=== PATIENT | male | born 1980 | race Caucasian/White ===

== ENCOUNTER 2016-07-26 17:38 | Emergency (ER) | payer SELFPAY ==
[~2016-07-26] VITALS: Ht 170.2 cm; Wt 90.7 kg
[~2016-07-26 17:38] MED LIST: ATEN50TA PO; HYDR-3816 PO; HYDR-3874 PO; HYDR-757 PO; HYDR1TAB PO; IBUP-1780 PO; SULF-222 PO; SULF1TAB23 PO; SULF1TAB35 PO; SULF1TAB38 PO; TAMS0.4C98 PO; TRAM50TA2 PO
[2016-07-26] MEDS ORDERED: SULF1TAB35 PO (18:42)
[2016-07-26] MEDS ORDERED: HYDR-757 PO (18:42)
[2016-07-26] MEDS ORDERED: ENAL1TAB8 PO (18:42)
--- NOTE | 2016-07-26 18:42 | ED Integumentary General ---
General Stated Complaint: BITE ON LT SIDE OF FACE Source: patient Exam Limitations: no limitations History of Present Illness Time seen by provider: 18:37 Initial Comments To ER with a suspected insect bite to the left cheek for 2 days. He is at some drainage from this. Did not see anything bite him. Timing/Duration: yesterday, getting worse Severity: moderate Location: face Associated Symptoms: denies symptoms Allergies and Home Medications Allergies Coded Allergies: No Known Drug Allergies (Unverified , 02/10/12) Home Medications No Active Prescriptions or Reported Meds Constitutional: see HPI EENTM: see HPI Respiratory: no symptoms reported Cardiovascular: no symptoms reported Genitourinary: no symptoms reported Musculoskeletal: no symptoms reported Skin: no symptoms reported Psychiatric/Neurological: No Symptoms Reported Endocrine: No Symptoms Reported Past Vmvpdra-Nlvtgs-Gkoony Hx Patient Social History Drug of Choice: METH Recent Foreign Travel: No Contact w/Someone Who Travel: No Recent Hopitalizations: No Immunizations Up To Date Tetanus Booster (TDap): Unknown Seasonal Allergies Seasonal Allergies: No Surgeries HX Surgeries: No Respiratory Hx Respiratory Disorders: No Cardiovascular Hx Cardiac Disorders: Yes Cardiac Disorders: Hypertension Neurological Hx Neurological Disorders: No Reproductive System Hx Reproductive Disorders: No Genitourinary Hx Genitourinary Disorders: No Gastrointestinal Hx Gastrointestinal Disorders: Yes Gastrointestinal Disorders: Gastroesophageal Reflux Musculoskeletal Hx Musculoskeletal Disorders: No Endocrine Hx Endocrine Disorders: No HEENT HX ENT Disorders: No Cancer Hx Cancer: No Psychosocial Hx Psychiatric Problems: No Integumentary HX Skin/Integumentary Disorder: Yes (MRSA) Blood Transfusions Hx Blood Disorders: No Family Medical History Significant Family History: No Pertinent Family Hx Physical Exam Vital Signs Vital Sign - Last 12Hours 07/26/16 18:38 Temp 98.6 Pulse 114 Resp 20 B/P (MAP) 149/108 Pulse Ox 100 Capillary Refill : General Appearance: WD/WN, no apparent distress HEENT: PERRL/EOMI, normal ENT inspection, other (open draining wound to the left cheek. Culture of this was collected and sent to lab.) Neck: non-tender, full range of motion Respiratory: no respiratory distress, no accessory muscle use Gastrointestinal: non tender, soft Neurologic/Psychiatric: alert, normal mood/affect, oriented x 3 Skin: normal color, warm/dry Skin Problem Location: face Skin Problem Character: abscess Progress/Results/Core Measures Results/Orders My Orders Orders - SHAVON DUBON APRN Sulfamethoxazole/Trimet Ds Tab (Bactrim (07/26/16 18:45) Wound Culture (07/26/16 18:35) Hydrocodone/Apap 5/325 Tablet (Lortab 5 (07/26/16 18:45) Medications Given in ED Current Medications Medications Dose Ordered Sig/Arielle Route Start Time Stop Time Status Last Admin Dose Admin Acetaminophen/ Hydrocodone Bitart 1 tab ONCE ONCE PO 07/26/16 18:45 07/26/16 18:46 DC 07/26/16 18:46 1 TAB Trimethoprim/ Sulfamethoxazole 2 ea ONCE ONCE PO 07/26/16 18:45 07/26/16 18:46 DC 07/26/16 18:46 2 EA Vital Signs/I&O Vital Sign - Last 12Hours 07/26/16 18:38 Temp 98.6 Pulse 114 Resp 20 B/P (MAP) 149/108 Pulse Ox 100 Departure Impression Impression: Primary Impression: Abscess Disposition: 01 HOME, SELF-CARE Condition: Stable Departure-Patient Inst. Decision time for Depature: 18:39 Referrals: NO,LOCAL PHYSICIAN (PCP/Family) Primary Care Physician Patient Instructions: ABSCESS Add. Discharge Instructions: Use a warm compress to your face 2. Return to ER for any worsening 3. Take your antibiotics as directed Scripts No Active Prescriptions or Reported Meds SHAVON DUBON APRN Jul 26, 2016 18:42
[2016-07-26] MEDS ORDERED: TRIM/SULFAMETH 160/800 (SEPTRA DS) TAB PO ONE (18:45)
[2016-07-26] MEDS ORDERED: HYDROcodone/APAP 5 MG/325 MG (LORTAB) TAB PO ONE (18:45)
[2016-07-26 18:55] VITALS: BP 148/100
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
== END 2016-07-26 18:54 | disposition home or self-care (01) ==
LOC: EDUNIT# 17:38 → ER 17:41
DX: L02.01 Cutaneous abscess of face (principal)
CPT/HCPCS: 10060; 87070; 87077; 87186; 87205

== ENCOUNTER → 2021-04-22 | Outpatient (CLI) | payer SELFPAY ==
[~2021-04-22] MED LIST changes: +ASPI-1238 PO; +AZIT250T12 PO; +ENAL1TAB14 PO; +FURO40TA4 PO; +HYDR-3870 PO; -HYDR-3874 PO; +HYDR-4226 PO; -HYDR-757 PO; +LISI5TAB20 PO; +METO-333 PO; +MTP25TSR PO; +POTA-160 PO; +RT-ALBUINH IH; -SULF1TAB35 PO; -TAMS0.4C98 PO; +TMSL.4C PO; -TRAM50TA2 PO; +TRM50T PO
[2021-04-22 10:36] LABS: POTASSIUM 4.4 MMOL/L (3.6-5.0)
[2021-04-22 10:37] LABS: CALCIUM 9.6 MG/DL (8.5-10.1)
[2021-04-22 10:42] LABS: CREATININE SERUM 0.96 MG/DL (0.60-1.30)
== END ==
LOC: LAB 10:02
PROVIDERS: ATTEND Internal Medicine Cardiovascular Disease
DX: I42.9 Cardiomyopathy, unspecified (principal)
CPT/HCPCS: 36415; 80048

== ENCOUNTER → 2021-04-30 | Outpatient (CLI) | payer SELFPAY ==
[2021-04-30 11:50] LABS: POTASSIUM 4.1 MMOL/L (3.6-5.0)
[2021-04-30 11:51] LABS: CALCIUM 9.7 MG/DL (8.5-10.1)
[2021-04-30 11:55] LABS: CREATININE SERUM 0.96 MG/DL (0.60-1.30)
== END ==
LOC: LAB 11:19
PROVIDERS: ATTEND Internal Medicine Cardiovascular Disease
DX: I42.9 Cardiomyopathy, unspecified (principal); I50.22 Chronic systolic (congestive) heart failure; I11.0 Hypertensive heart disease with heart failure; I27.20 Pulmonary hypertension, unspecified; F15.10 Other stimulant abuse, uncomplicated; E66.9 Obesity, unspecified
CPT/HCPCS: 36415; 80048

== ENCOUNTER 2022-04-13 05:18 | Inpatient (IN) | payer OTHER ==
[~2022-04-13] VITALS: Ht 170 cm; Wt 89.0 kg
[2022-04-13] VITALS (8 sets, daily range): BP systolic 109–122; BP diastolic 75–95
[~2022-04-13 05:18] MED LIST changes: +ALBU8.5H6 IH; -RT-ALBUINH IH
--- NOTE | 2022-04-13 05:57 | ED Cardiac General ---
History of Present Illness General Chief Complaint: Respiratory Problems Stated Complaint: SOB Nursing Triage Note: PT ARRIVAL TO ER VIA PRIVATE VEHICLE FROM HOME WITH COMPLAINT OF SOA. PT STATES THAT IT SUDDENLY WOKE HIM UP. PT ALSO COMPLAINS OF HEAVINESS IN CHEST. PT STATES THAT THIS HAPPENED A YEAR AGO AND HE WAS DIAGNOSED WITH CHF. Source: patient, old records Exam Limitations: no limitations (SUSAN MEDEROS MD) History of Present Illness Date Seen by Provider: Apr 13, 2022 Time Seen by Provider: 05:25 Initial Comments This 41-year-old gentleman presents to the emergency room with complaints of progressive dyspnea and orthopnea as well as chest pressure or fullness over the past 2 weeks. He also has fullness in the abdomen but denies any peripheral edema. He has history of congestive heart failure and was previously on diuretics. Diuretics have not been continued in recent months. He was seeing Dr. Gonzalez but has not established with another supervisor [employer] since Dr. Gonzalez departure. He has also had some cough over the past 2 weeks but denies fever. He smokes and is working on quitting. During his admission last year he was noted to have an ejection fraction of 20 to 25% both on heart cath and echocardiogram. No obstructive coronary artery disease was noted. 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 Patient denies drug or alcohol use other than smoking marijuana. (SUSAN MEDEROS MD) Allergies and Home Medications Allergies Coded Allergies: No Known Drug Allergies (Unverified , 02/10/12) Patient Home Medication List Home Medication List Reviewed: Yes (SUSAN MEDEROS MD) Aspirin (Aspirin EC) 81 Mg Tablet.dr, 81 MG PO DAILY Prescribed by: BARRETT GONZALEZ JR, MD on 03/25/21803 Furosemide (Furosemide) 40 Mg Tablet, 40 MG PO DAILY Prescribed by: BARRETT GONZALEZ JR, MD on 03/25/21803 Lisinopril (Lisinopril) 5 Mg Tablet, 2.5 MG PO DAILY Prescribed by: BARRETT GONZALEZ JR, MD on 03/25/21803 Metoprolol Succinate (Metoprolol Succinate) 25 Mg Tab.er.24h, 25 MG PO DAILY Prescribed by: BARRETT GONZALEZ JR, MD on 03/25/21 0804 Potassium Chloride (Klor-Con 10) 10 Meq Tablet.er, 10 MEQ PO DAILY@0700 Prescribed by: BARRETT GONZALEZ JR, MD on 03/25/21 0804 Review of Systems Review of Systems Constitutional: no symptoms reported EENTM: No Symptoms Reported Respiratory: See HPI Cardiovascular: See HPI Gastrointestinal: No Symptoms Reported Genitourinary: No Symptoms Reported Musculoskeletal: no symptoms reported Skin: no symptoms reported Psychiatric/Neurological: No Symptoms Reported Endocrine: No Symptoms Reported Hematologic/Lymphatic: No Symptoms Reported (SUSAN MEDEROS MD) Past Ecjpkfu-Aydenp-Qdgqsg Hx Patient Social History Tobacco Use?: Yes Tobacco type used: Cigarettes Use of E-Cig and/or Vaping dev: No Substance use?: Yes Substance type: Marijuana Substance frequency: Couple times a week Alcohol Use?: No Pt feels they are or have been: No (SUSAN MEDEROS MD) Immunizations Up To Date Tetanus Booster (TDap): Less than 5yrs Influenza Vaccine Up-to-Date: Yes; Up-to-Date First/Initial COVID19 Vaccinat: Dec 2020 Second COVID19 Vaccination Lasha: JAN 2021 Third COVID19 Vaccination Date: MAR 2021 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 (SUSAN MEDEROS MD) Seasonal Allergies Seasonal Allergies: No (SUSAN MEDEROS MD) Past Medical History Surgery/Hospitalization HX: None Surgeries: Yes Cardiac (Heart cath 2021, no obstructive disease) Respiratory: No Cardiac: Yes (Cardiomyopathy and congestive heart failure) Cardiomyopathy, Hypertension Neurological: No Reproductive Disorders: No Gastrointestinal: Yes Gastroesophageal Reflux Musculoskeletal: No Endocrine: No Cancer: No Psychosocial: No Integumentary: Yes (MRSA) Blood Disorders: No (SUSAN MEDEROS MD) Family Medical History No Pertinent Family Hx (SUSAN MEDEROS MD) Physical Exam Vital Signs Vital Signs - First Documented 04/13/22 05:32 Temp 36.4 Pulse 126 Resp 24 B/P (MAP) 101/ Pulse Ox 98 O2 Delivery Room Air (ZAIN MARMOLEJO MD) Vital Signs Capillary Refill : Less Than 3 Seconds (SUSAN MEDEROS MD) Height, Weight, BMI Height: 5'7.00" Weight: 200lbs. oz. 90.344688lp; 31.90 BMI Method:Stated General Appearance: No Apparent Distress, WD/WN HEENT: PERRL/EOMI, Normal ENT Inspection Neck: Normal Inspection; No JVD Respiratory: Lungs Clear, Normal Breath Sounds, No Accessory Muscle Use Cardiovascular: No Edema, No Murmur, Tachycardia Gastrointestinal: Normal Bowel Sounds, Non Tender, Soft, Distended Extremity: Normal Inspection, No Pedal Edema Neurologic/Psychiatric: Alert, Oriented x3, No Motor/Sensory Deficits, Normal Mood/Affect Skin: Normal Color, Warm/Dry (SUSAN MEDEROS MD) Progress/Results/Core Measures Results/Orders Lab Results Laboratory Tests Test 04/13/22 05:51 04/13/22 06:13 04/13/22 06:15 Range/Units Sodium Level 142 135-145 MMOL/L Potassium Level 5.0 3.6-5.0 MMOL/L Chloride Level 112 H 98-107 MMOL/L Carbon Dioxide Level 18 L 21-32 MMOL/L Anion Gap 12 5-14 MMOL/L Blood Urea Nitrogen 10 7-18 MG/DL Creatinine 0.94 0.60-1.30 MG/DL Estimat Glomerular Filtration Rate 104 BUN/Creatinine Ratio 11 Glucose Level 105 70-105 MG/DL Calcium Level 8.7 8.5-10.1 MG/DL Corrected Calcium 8.9 8.5-10.1 MG/DL Magnesium Level 2.1 1.6-2.4 MG/DL Total Bilirubin 0.4 0.1-1.0 MG/DL Aspartate Amino Transf (AST/SGOT) 43 H 5-34 U/L Alanine Aminotransferase (ALT/SGPT) 36 0-55 U/L Alkaline Phosphatase 59 40-136 U/L Myoglobin 41.6 10.0-92.0 NG/ML Troponin I 0.043 H <0.028 NG/ML Total Protein 7.5 6.4-8.2 GM/DL Albumin 3.8 3.2-4.5 GM/DL White Blood Count 11.2 H 4.3-11.0 10^3/uL Red Blood Count 5.31 4.30-5.52 10^6/uL Hemoglobin 15.0 13.3-17.7 g/dL Hematocrit 46 40-54 % Mean Corpuscular Volume 86 80-99 fL Mean Corpuscular Hemoglobin 28 25-34 pg Mean Corpuscular Hemoglobin Concent 33 32-36 g/dL Red Cell Distribution Width 14.2 10.0-14.5 % Platelet Count 366 130-400 10^3/uL Mean Platelet Volume 9.6 9.0-12.2 fL Immature Granulocyte % (Auto) 1 % Neutrophils (%) (Auto) 63 42-75 % Lymphocytes (%) (Auto) 25 12-44 % Monocytes (%) (Auto) 6 0-12 % Eosinophils (%) (Auto) 4 0-10 % Basophils (%) (Auto) 1 0-10 % Neutrophils # (Auto) 7.1 1.8-7.8 10^3/uL Lymphocytes # (Auto) 2.9 1.0-4.0 10^3/uL Monocytes # (Auto) 0.7 0.0-1.0 10^3/uL Eosinophils # (Auto) 0.4 H 0.0-0.3 10^3/uL Basophils # (Auto) 0.1 0.0-0.1 10^3/uL Immature Granulocyte # (Auto) 0.1 0.0-0.1 10^3/uL Prothrombin Time 13.5 12.2-14.7 SEC INR Comment 1.0 0.8-1.4 Activated Partial Thromboplast Time 29 24-35 SEC C-Reactive Protein High Sensitivity 0.41 0.00-0.50 MG/DL B-Type Natriuretic Peptide 534.0 H <100.0 PG/ML Influenza Type A (RT-PCR) Not Detected Not Detecte Influenza Type B (RT-PCR) Not Detected Not Detecte SARS-CoV-2 RNA (RT-PCR) Not Detected Not Detecte (ZAIN MARMOLEJO MD) My Orders Orders - ZAIN MARMOLEJO MD Hs C Reactive Protein (04/13/22 06:07) Drug Screen Stat (Urine) (04/13/22 06:07) Furosemide Injection (Lasix Injection) (04/13/22 07:15) Metoprolol Succinate (Xl) Tab (Toprol Xl (04/13/22 07:15) Lisinopril Tablet (Zestril Tablet) (04/13/22 07:15) (ZAIN MARMOLEJO MD) Vital Signs/I&O 04/13/22 05:32 Temp 36.4 Pulse 126 Resp 24 B/P (MAP) 101/ Pulse Ox 98 O2 Delivery Room Air (ZAIN MARMOLEJO MD) Progress Progress Note : Time: 06:12 Progress Note Patient was interviewed and examined. Chest pain panel has been ordered inclu ding CBC, CMP, troponin, BNP, chest x-ray, and EKG. EKG was reviewed and interpreted by me. There was sinus tachycardia with no ischemic ST elevation or depression appreciated. Chest x-ray suggested a heart failure pattern and possibly a right lower lobe infiltrate. Flu and COVID swabs are pending. Labs are pending and will be reviewed by Dr. MARMOLEJO. Care of this patient is being transitioned to Dr. Marmolejo at shift change (SUSAN MEDEROS MD) Progress Note : Progress Note 0654: I did assume care of the patient from Dr. Mederos as noted above. I have reexamined the patient's and agree with history. I have reviewed chest x- ray performed and agree with the above. I have reviewed labs and CBC shows mildly elevated white count of 11.2 but otherwise within normal range. CMP is grossly normal with normal renal function and normal LFTs. Magnesium is normal. CRP is negative. Troponin is elevated slightly at 0.043 and BNP is also elevated at 534. I have reviewed previous history including heart cath done in March 2021. Heart failure noted without significant coronary artery disease. Patient has history of hypertension and previous history of methamphetamine abuse although he denies that now. It would appear that he is in heart failure. He is tachycardic which may be secondary to rebound from being off metoprolol for a few days. I will discuss the case with the supervisor [employer] on-call, Dr Escobar given that he has slightly elevated troponin and his BNP is elevated. Monitor patient. 0713: I have discussed the case with Dr Escobar, on-call [employer]. He agrees with dose of furosemide as ordered. Furosemide 40 mg IV ordered. He is recommending metoprolol 25 mg p.o. and lisinopril 5 mg p.o. He also agrees with admission and recommends cardiac stepdown. He will see the patient in consult. I did discuss the case with Dr. Anaya, on-call for [facility] who will admit the patient primary. She will write orders. Admit, inpatient status. Patient agrees with plan. (ZAIN MARMOLEJO MD) Initial ECG Impression Date: Apr 13, 2022 Initial ECG Impression Time: 05:48 Initial ECG Rate: 121 Initial ECG Rhythm: S.Tach Comment Reviewed and interpreted by me. Sinus tachycardia with no diagnostic ST elevation or depression. There are subtle ST changes. No abnormal intervals or axis deviation. (SUSAN MEDEROS MD) Diagnostic Imaging Diagonstic Imaging: Xray Plain Films/CT/US/NM/MRI: chest Comments Chest x-ray was viewed and interpreted by me. Report not yet available. Heart failure pattern appreciated with vascular congestion and cardiomegaly. Right lower lobe infiltrate not excluded as a possibility. (SUSAN MEDEROS MD) Comments [facility] [place] NAME: JITENDRA LEMUS [facility] REC#: [id number] PT STATUS: REG ER : 1980 PHYSICIAN: SUSAN MEDEROS MD ADMIT DATE: 04/13/22/ER Draft Date of Exam:04/13/22 CHEST 1 VIEW, AP/PA ONLY Indication: Chest pain Portable chest 6:06 AM Heart size and pulmonary vascularity are normal. Lungs are clear. There are no effusions or pneumothoraces. IMPRESSION: Negative chest. Dictated on workstation # [id number] Dict: 04/13/22 0639 Trans: 04/13/22 0642 [facility] [id number] Interpreted by: ZAIN RICHTER MD Electronically signed by: Reviewed: Reviewed by Me (ZAIN MARMOLEJO MD) Departure Communication (Admissions) Time/Spoke to Admitting Phy: 07:09 Time/Spoke to Consulting Phy: 07:02 (ZAIN MARMOLEJO MD) Impression Primary Impression: Acute heart failure Qualified Codes: I50.21 - Acute systolic (congestive) heart failure Disposition: ADMITTED INPATIENT Condition: Stable Admissions Decision to Admit Reason: Admit from ER (General) Decision to Admit/Date: Apr 13, 2022 Time/Decision to Admit Time: 07:02 (ZAIN MARMOLEJO MD) Departure-Patient Inst. Referrals: [facility] (PCP/Family) Primary Care Physician SUSAN MEDEROS MD Apr 13, 2022 05:57 ZAIN MARMOLEJO MD Apr 13, 2022 06:58
[2022-04-13 06:10] LABS: ALBUMIN 3.8 GM/DL (3.2-4.5)
[2022-04-13 06:12] LABS: CALCIUM 8.7 MG/DL (8.5-10.1)
[2022-04-13 06:13] LABS: TOTAL PROTEIN 7.5 GM/DL (6.4-8.2)
[2022-04-13 06:15] LABS: BILIRUBIN,TOTAL 0.4 MG/DL (0.1-1.0)
[2022-04-13 06:17] LABS: CREATININE SERUM 0.94 MG/DL (0.60-1.30)
[2022-04-13 06:20] LABS: MAGNESIUM 2.1 MG/DL (1.6-2.4)
[2022-04-13 06:20] LABS: BASOPHILS # (AUTO) 0.1 10^3/uL (0.0-0.1); BASOPHILS % (AUTO) 1 % (0-10); EOSINOPHILS # (AUTO) 0.4 10^3/uL (0.0-0.3); EOSINOPHILS % (AUTO) 4 % (0-10); HEMATOCRIT 46 % (40-54); LYMPHOCYTES # (AUTO) 2.9 10^3/uL (1.0-4.0); LYMPHOCYTES % (AUTO) 25 % (12-44); MEAN CORPUSCULAR HEMOGLOBIN 28 pg (25-34); MEAN CORPUSCULAR HGB CONC 33 g/dL (32-36); MEAN CORPUSCULAR VOLUME 86 fL (80-99); MEAN PLATELET VOLUME 9.6 fL (9.0-12.2); MONOCYTES # (AUTO) 0.7 10^3/uL (0.0-1.0); MONOCYTES % (AUTO) 6 % (0-12); NEUTROPHILS # (AUTO) 7.1 10^3/uL (1.8-7.8); NEUTROPHILS % (AUTO) 63 % (42-75); PLATELET COUNT 366 10^3/uL (130-400); WHITE BLOOD COUNT 11.2 10^3/uL (4.3-11.0)
[2022-04-13 06:31] LABS: PROTHROMBIN TIME PATIENT 13.5 SEC (12.2-14.7)
--- NOTE | 2022-04-13 06:42 | Diagnostic Imaging Report ---
Indication: Chest pain Portable chest 6:06 AM Heart size and pulmonary vascularity are normal. Lungs are clear. There are no effusions or pneumothoraces. IMPRESSION: Negative chest. Dictated by: Dictated on workstation # [id number]
[2022-04-13] MEDS ORDERED: lisINopril 5 MG (PRINIVIL) TABLET PO ONE (07:15)
[2022-04-13] MEDS ORDERED: FUROSEMIDE 40 MG/4 ML INJ (LASIX) IVP ONE (07:15)
[2022-04-13 08:17] LABS: AMPHETAMINE SCREEN, URINE POSITIVE (NEGATIVE); BARBITURATE SCREEN URINE NEGATIVE (NEGATIVE); BENZODIAZEPINES SCREEN URINE NEGATIVE (NEGATIVE); CANNABINOID SCREEN, URINE POSITIVE (NEGATIVE); COCAINE SCREEN URINE NEGATIVE (NEGATIVE); METHADONE STAT NEGATIVE (NEGATIVE); OPIATE SCREEN URINE NEGATIVE (NEGATIVE); OXYCODONE STAT NEGATIVE (NEGATIVE); PROPOXYPHENE STAT NEGATIVE (NEGATIVE); TRICYCLIC ANTIDEPRESSANTS SCRE NEGATIVE (NEGATIVE)
[2022-04-13] MEDS ORDERED: ONDANSETRON 4 MG/2 ML (SDV) Z0FRAN IV PRN (08:30)
[2022-04-13] MEDS ORDERED: LACTULOSE SYRUP 10GM/15ML (ENULOSE) 30ML UDC PO PRN (08:30)
[2022-04-13] MEDS ORDERED: CALCIUM CARBONATE 500 MG (TUMS) TAB.CHEW PO PRN (08:30)
[2022-04-13] MEDS ORDERED: diphenhydrAMINE 50 MG/ML INJ (BENADRYL) IVP PRN (08:30)
[2022-04-13] MEDS ORDERED: polyethylene glycoL POWDER 17 GM (MIRALAX) PACK PO PRN (08:30)
[2022-04-13] MEDS ORDERED: ANTACID SUSP 30 ML UDC (MYLANTA) PO PRN (08:30)
[2022-04-13] MEDS ORDERED: BISACODYL 10 MG SUPP (DULCOLAX) PR PRN (08:30)
[2022-04-13] MEDS ORDERED: ONDANSETRON 4 MG (ZOFRAN) ORAL DISSOLVE TAB PO PRN (08:30)
[2022-04-13] MEDS ORDERED: MILK OF MAGNESIA 400 MG/5 ML 30 ML UDC PO PRN (08:30)
[2022-04-13] MEDS ORDERED: diphenhydrAMINE 25 MG TAB (BENADRYL) PO PRN (08:30)
[2022-04-13] MEDS ORDERED: HYDROmorphone 2 MG/ML VIAL (DILAUDID) IV PRN (08:30)
[2022-04-13] MEDS ORDERED: MELATONIN 3 MG TABLET PO PRN (08:30)
[2022-04-13] MEDS ORDERED: ACETAMINOPHEN 325 MG TABLET PO PRN (08:30)
[2022-04-13] MEDS ORDERED: lisINopril 5 MG (PRINIVIL) TABLET PO SCH (09:00)
[2022-04-13] MEDS: DOCUSATE SODIUM 100 MG (COLACE) CAP PO SCH ×2 (09:18→19:48)
[2022-04-13] MEDS: SENNOSIDES 8.6 MG (SENOKOT) TAB PO SCH ×2 (09:18→19:48)
[2022-04-13] MEDS: ENOXAPARIN 40 MG/0.4 ML (LOVENOX) SYR SC SCH (09:18)
[2022-04-13] MEDS: ASPIRIN E.C. 81 MG (ECOTRIN) TAB PO SCH (09:18)
--- NOTE | 2022-04-13 10:45 | Consultation-Cardiology ---
HPI-Cardiology Cardiology Consultation: Date of Consultation 04/13/22 Date of Admission 04-12-22 Attending Physician [place]/[facility] Admitting Physician Admitting Physician: Karrie Massey DO Attending Physician: Karrie Massey DO Consulting Physician Joshua Escobar MD OZQ-Trbcad-Wxcaed Hx Patient Social History Smoking Status: Former Smoker Have you traveled recently?: No Alcohol Use?: No Substance type: Marijuana Pt feels they are or have been: No Tobacco type used: Cigarettes Immunizations Up To Date Tetanus Booster (TDap): Less than 5yrs Past Medical History PMH As described under Assessment. Family Medical History Family Medical History: The patient does not know of any family history of premature coronary artery disease in first-degree relatives. Allergies and Home Medications Allergies Coded Allergies: No Known Drug Allergies (Unverified , 02/10/12) Patient Home Medication List Aspirin (Aspirin EC) 81 Mg Tablet.dr, 81 MG PO DAILY Prescribed by: KARRIE MASSEY on 04/14/221215 Carvedilol (Carvedilol) 3.125 Mg Tablet, 3.125 MG PO BID Prescribed by: KARRIE MASSEY on 04/14/22 121 Empagliflozin (Jardiance) 10 Mg Tablet, 10 MG PO DAILY Prescribed by: KARRIE MASSEY on 04/14/221215 Furosemide (Lasix) 40 Mg Tablet, 40 MG PO DAILY Prescribed by: KARRIE MASSEY on 04/14/221215 Sacubitril/Valsartan (Entresto 24 mg-26 mg Tablet) 24 Mg-26 Mg Tablet, 1 TAB PO Q12H Prescribed by: KARRIE MASSEY on 04/14/221215 Spironolactone (Spironolactone) 25 Mg Tablet, 25 MG PO DAILY Prescribed by: KARRIE MASSEY on 04/14/221215 Discontinued Medications Aspirin (Aspirin EC) 81 Mg Tablet.dr, 81 MG PO DAILY Discontinued Reason: No Longer Taking Prescribed by: BARRETT GONZALEZ JR, MD on 03/25/21803 Last Action: Discontinued Furosemide (Furosemide) 40 Mg Tablet, 40 MG PO DAILY Discontinued Reason: No Longer Taking Prescribed by: BARRETT GONZALEZ JR, MD on 03/25/21803 Last Action: Discontinued Lisinopril (Lisinopril) 5 Mg Tablet, 2.5 MG PO DAILY Discontinued Reason: No Longer Taking Prescribed by: BARRETT GONZALEZ JR, MD on 03/25/21803 Last Action: Discontinued Metoprolol Succinate (Metoprolol Succinate) 25 Mg Tab.er.24h, 25 MG PO DAILY Discontinued Reason: No Longer Taking Prescribed by: BARRETT GONZALEZ JR, MD on 03/25/21803 Last Action: Discontinued Potassium Chloride (Klor-Con 10) 10 Meq Tablet.er, 10 MEQ PO DAILY@0700 Discontinued Reason: No Longer Taking Prescribed by: BARRETT GONZALEZ JR, MD on 03/25/21803 Last Action: Discontinued Physical Exam-Cardiology Physical Exam Vital Signs/I&O 04/14/22 04/15/22 04/15/22 04/15/22 20:25 00:51 01:00 04:40 Temp 36.0 36.4 Pulse 99 93 93 Resp 16 16 B/P (MAP) 110/78 (89) 112/77 (89) Pulse Ox 96 96 96 O2 Delivery Room Air Room Air Room Air 04/15/22 07:00 Pulse 111 04/15/22 00:00 Intake Total 1800 ml Balance 1800 ml Capillary Refill : Less Than 3 Seconds Data Review Labs Laboratory Tests 04/15/22 04:45: White Blood Count 8.8, Red Blood Count 5.88H, Hemoglobin 16.6, Hematocrit 50, Mean Corpuscular Volume 86, Mean Corpuscular Hemoglobin 28, Mean Corpuscular Hemoglobin Concent 33, Red Cell Distribution Width 14.0, Platelet Count 341, Mean Platelet Volume 10.6, Immature Granulocyte % (Auto) 1, Neutrophils (%) (Auto) 57, Lymphocytes (%) (Auto) 25, Monocytes (%) (Auto) 13H, Eosinophils (%) (Auto) 4, Basophils (%) (Auto) 1, Neutrophils # (Auto) 5.0, Lymphocytes # (Auto) 2.2, Monocytes # (Auto) 1.1H, Eosinophils # (Auto) 0.4H, Basophils # (Auto) 0.1, Immature Granulocyte # (Auto) 0.1, Sodium Level 140, Potassium Level 3.7, Chloride Level 106, Carbon Dioxide Level 20L, Anion Gap 14, Blood Urea Nitrogen 21H, Creatinine 0.99, Estimat Glomerular Filtration Rate 98, BUN/Creatinine Ratio 21, Glucose Level 111H, Calcium Level 9.6, Corrected Calcium 9.4, Total Bilirubin 0.5, Aspartate Amino Transf (AST/SGOT) 44H, Alanine Aminotransferase (ALT/SGPT) 49, Alkaline Phosphatase 64, Total Protein 8.0, Albumin 4.2 Radiology NAME: JITENDRA LEMUS [facility] REC#: [id number] PT STATUS: REG ER : 1980 PHYSICIAN: SUSAN LEE MD ADMIT DATE: 04/13/22/ER Signed Date of Exam:04/13/22 CHEST 1 VIEW, AP/PA ONLY Indication: Chest pain Portable chest 6:06 AM Heart size and pulmonary vascularity are normal. Lungs are clear. There are no effusions or pneumothoraces. IMPRESSION: Negative chest. Dictated by: Dictated on workstation # [id number] Dict: 04/13/22 0639 Trans: 04/13/22 0658 BANNER [id number] Interpreted by: ZAIN RICHTER MD Electronically signed by: ZAIN RICHTER MD 04/13/22 0658 A/P-Cardiology Assessment/Admission Diagnosis Acute on chronic systolic heart failure - ECHOCARDIOGRAM (03/23/2021) by Dr. Gonzalez: Severe left ventricular dilatation with normal wall thickness. Severe left ventricular systolic dysfunction with an estimated ejection fraction of 15-20% with global hypokinesis. The left ventricular diastolic function is indeterminate. The left atrium is severely dilated with a volume index of 56 mL/m. The right atrium is moderately dilated with an area of 25 cm. There is mild mitral regurgitation. The estimated pulmonary artery systolic pressure is 40 mmHg assuming a right atrial pressure of 5 mmHg. Non-ischemic Cardiomyopathy - CARDIAC CATHETERIZATION (03/24/2021) by Dr. Gonzalez: Low systemic blood pressure with normal left ventricular end-diastolic pressure. Angiographically normal-appearing coronary arteries in a right dominant system but with diffusely slow flow consistent with a low output state. HTN H/O Methamphetamine abuse - tested positive during this hospitalization JOB RODRIGUEZ Apr 13, 2022 10:44
--- NOTE | 2022-04-13 11:20 | History & Physical-Hospitalist ---
TIO HERZOG 04/13/22 1120: History of Present Illness HPI/Chief Complaint 41 year old male with a past medical history of dilated cardiomyopathy and HFrEF presented to [facility] ER with a chief complaint of shortness of breath. Patient states that this has been ongoing for a couple of weeks, but has been progressively worsening. Patient states he decided to come in to the ER because he could no longer lay flat without becoming extremely short of breath. Patient also endorses chest heaviness. States lying down aggravates his SOB the most. Patient was hospitalized for similar symptoms one year ago, which was when he was diagnosed with HFrEF (15%) and dilated cardiomyopathy. Patient's Solution Professional was Dr. Gonzalez, but he has not reestablished care with a new Solution Professional since Dr. Gonzalez has left. In the ED, patient's troponin was elevated at 0.0434 and BNP was 534. Patient's UA was positive for methamphetamine and marijuana. Patient's CXR was also consistent with a HF pattern. Patient was started on Furosemide 40 mg IV, metoprolol 25 mg p.o., and lisinopril [address] Escobar's recommendations. Source: patient Exam Limitations: no limitations Date Seen 04/13/22 Attending Physician Center/[facility] PCP Admitting Physician: Karrie Massey DO Attending Physician: Karrie Massey DO Referring Physician Date of Admission Apr 13, 2022 at 08:02 Home Medications & Allergies Home Medications Reviewed patient Home Medication Reconciliation performed by pharmacy medication reconciliations ordnance engineering technician and/or nursing. Patients Allergies have been reviewed. Allergies Allergies Coded Allergies No Known Drug Allergies (Unverified02/10/12) Past Pjepmgh-Uxbbqs-Xmbtvp Hx Patient Social History Marrital Status: single Tobacco Use?: Yes Tobacco type used: Cigarettes (pt states trying to quit "around 3 a day" currently) Smoking Status: Former Smoker Smokeless Tobacco Frequency: Never a User Use of E-Cig and/or Vaping dev: No Substance use?: Yes Substance type: Methamphetamine, Marijuana Substance frequency: Couple times a week Alcohol Use?: No Pt feels they are or have been: No Immunizations Up To Date First/Initial COVID19 Vaccinat: Dec 2020 Second COVID19 Vaccination Lasha: JAN 2021 Tetanus Booster (TDap): Less Than 5 Years Seasonal Allergies Seasonal Allergies: No Current Status Advance Directives: No Communicates: Verbally Primary Language: Serbian Preferred Spoken Language: Serbian Is interpretation needed?: No Implanted or Applied Medical D: None Past Medical History Surgeries: Cardiac (Heart cath 2021, no obstructive disease.) Cardiomyopathy (dilated. HFrEF 20%), Hypertension Gastroesophageal Reflux Blood Disorders: No Family Medical History Cancer (Grandmother and Grandfather, unsure what types) Review of Systems Constitutional: No chills, No dizziness, No fever EENTM: No blurred vision, No double vision, No eye pain Respiratory: No cough; orthopnea Cardiovascular: No chest pain (not pain, just heaviness ), No palpitations Gastrointestinal: No abdominal pain, No constipation, No diarrhea, No nausea, No vomiting Genitourinary: No dysuria, No frequency Psychiatric/Neurological: Denies Headache, Denies Weakness Physical Exam Physical Exam Vital Signs Vital Signs - First Documented 04/13/22 05:32 Temp 36.4 Pulse 126 Resp 24 B/P (MAP) 101/ Pulse Ox 98 O2 Delivery Room Air Capillary Refill : Less Than 3 Seconds Height, Weight, BMI Height: 5'7.00" Weight: 200lbs. oz. 90.528225gc; 31.14 BMI Method:Stated General Appearance: No Apparent Distress, WD/WN HEENT: PERRL/EOMI (EOMI), Normal ENT Inspection (External) Neck: Non Tender, Supple Respiratory: Chest Non Tender, Lungs Clear, Normal Breath Sounds, No Accessory Muscle Use, No Respiratory Distress Cardiovascular: Regular Rate, Rhythm (had been tachy in ED, RRR for me), No Murmur Gastrointestinal: Non Tender, Soft Rectal: Deferred Extremity: Non Tender, No Calf Tenderness, Pedal Edema (trace) Neurologic/Psychiatric: Alert, Oriented x3, Normal Mood/Affect Skin: Normal Color, Warm/Dry Results Results/Procedures Labs Laboratory Tests 04/13/22 05:51 04/13/22 06:13 Patient resulted labs reviewed. Imaging: Reviewed Imaging Films, Reviewed Imaging Report Assessment/Plan Admission Diagnosis Acute Exacerbation HFrEF Admission Status: Inpatient Order (span 2 midnights) Assessment and Plan Acute Exacerbation of HFrEF Dilated Cardiomyopathy - Diagnosed at previous hopsitalization one year ago, which showed EF of 20%. - Lasix, Lisinopril, Metoprolol - There was previous mention of starting an aldosterone antagonist during his previous hospitalization, although it seems this may not have been started. - Cardiology has been consulted, management per Dr. Escobar. Elevated Troponin - EKG negative for ischemic ST elevation or depressions - Unsure if from CHF vs demand ischemia vs CAD, though CHF seems most likely at this time. - Last Heart Cath showed no signs of CAD (03/2021) - Management per cardiology Hypertension - Managed on lisinopril and metoprolol outpatient, these have been restarted Polysubstance abuse - Patient positive for methamphetamine and marijuana in the ED - Could be part of the reason for tachycardia on presentation; Patient appears sober upon my interview with him - Can offer patient resources for outpatient rehab or counseling DVT Prophylaxis: Lovenox Dispo: Plan would be to discharge home when deemed medically stable from cardiology standpoint KARRIE MASSEY DO 04/13/222048: History of Present Illness Source: patient Exam Limitations: no limitations Time Seen by a Provider: 11:00 Past Gpensev-Jwpcxc-Pynfqd Hx Patient Social History Marrital Status: single Employed/Student: unemployed Review of Systems Constitutional: see HPI Physical Exam Physical Exam General Appearance: No Apparent Distress Respiratory: Lungs Clear, Normal Breath Sounds Cardiovascular: Regular Rate, Rhythm (had been tachy in ED, RRR for me) Assessment/Plan Admission Diagnosis AECHF Meth use Cardiomyopathy Admission Status: Inpatient Order (span 2 midnights) Reason for Inpatient Admission: chf Supervisory-Addendum Brief Verification & Attestation Participated in pt care: history, MDM, physical Personally performed: exam, history, MDM, supervision of care Care discussed with: Medical Student Procedures: n/a Results interpretation: Verified all documentation Verification and Attestation of Medical Student E/M Service A medical student performed and documented this service in my presence. I reviewed and verified all information documented by the medical student and made modifications to such information, when appropriate. I personally performed the physical exam and medical decision making. Karrie Massey, Apr 13, 2022,20:49 TIO HERZOG Apr 13, 2022 11:20 KARRIE MASSEY DO Apr 13, 2022 20:49
[2022-04-13] MEDS ORDERED: RT-ALBUTEROL SULF 2.5 MG/3 ML PRE-MIX VIAL INH PRN (15:45)
[2022-04-13] MEDS: FUROSEMIDE 40 MG/4 ML INJ (LASIX) IVP SCH (16:41)
--- NOTE | 2022-04-13 16:41 | Consultation-Cardiology ---
HPI-Cardiology Cardiology Consultation: Date of Consultation 04/13/22 Time Seen by a Provider: 09:25 Date of Admission Attending Physician [place]/[facility] Admitting Physician Admitting Physician: Karrie Anaya DO Attending Physician: Karrie Anaya DO Consulting Physician MICHELLE TORREZ MD, MA, FACP, FACC, FSCAI, CCDS Physician requesting consult: Dr Anaya HPI: Chief Complaint: Shortness of breath 41 yo man with a h/o meth use and dilated cardiomyopathy who had been refraining from meth use but has started using it again. He comes in with increasing shortness of breath for 3-4 weeks. Denies cp or palp or syncope or swelling. Gen weakness and malaise present Review of Systems-Cardiology Review of Systems Constitutional: malaise; No weight loss, No weight gain Eyes: No vision change Ears/Nose/Throat: No ear discharge, No nasal drainage, No recent hearing loss Respiratory: As described under HPI Cardiovascular: As described under HPI Gastrointestinal: No diarrhea, No nausea, No vomiting Genitourinary: No dysuria, No hematuria, No urine frequency changes Musculoskeletal: No back pain, No joint pain Skin: No rash, No ulcerations Psychiatric/Neurological: No seizure, No focal weakness, No syncope Hematologic: No bleeding abnormalities JXL-Symkbu-Cqcjzt Hx Patient Social History Marrital Status: single Smoking Status: Former Smoker Have you traveled recently?: No Alcohol Use?: No Substance type: Methamphetamine, Marijuana Pt feels they are or have been: No Tobacco type used: Cigarettes (pt states trying to quit "around 3 a day" currently) Immunizations Up To Date Tetanus Booster (TDap): Less than 5yrs Past Medical History PMH As described under Assessment. Family Medical History Family Medical History: The patient does not know of any family history of premature coronary artery disease in first-degree relatives. Allergies and Home Medications Allergies Coded Allergies: No Known Drug Allergies (Unverified , 02/10/12) Patient Home Medication List Home Medication List Reviewed: Yes No Active Prescriptions or Reported Meds Physical Exam-Cardiology Physical Exam Vital Signs/I&O 04/13/22 04/13/22 04/13/22 04/13/22 05:32 08:15 08:15 08:20 Temp 36.4 Pulse 126 119 115 Resp 24 12 B/P (MAP) 101/ 118/95 (103) 129/103 Pulse Ox 98 99 97 O2 Delivery Room Air Room Air Room Air Room Air 04/13/22 04/13/22 04/13/22 04/13/22 08:24 09:15 10:00 11:00 Pulse 115 111 90 101 Resp 20 16 19 B/P (MAP) 122/86 (98) 122/77 (92) 113/75 (88) Pulse Ox 94 94 90 O2 Delivery Room Air Room Air Room Air 04/13/22 04/13/22 04/13/22 04/13/22 12:00 12:46 15:21 15:31 Temp 36.8 36.4 Pulse 101 94 98 Resp 16 B/P (MAP) 109/81 (90) Pulse Ox 94 98 94 O2 Delivery Room Air Room Air O2 Flow Rate 0.00 FiO2 21 04/13/22 16:00 Pulse 108 Resp 24 B/P (MAP) 110/85 (93) Pulse Ox 91 O2 Delivery Room Air Capillary Refill : Less Than 3 Seconds Constitutional: AAO x 3, well-developed, well-nourished HEENT: EOMI; No xanthelasmas are seen Neck: carotid pulses are 2 + bilaterally, with good upstrokes Respiratory: No accessory muscle use; chest expansion is symmetric, chest is bilaterally symmetric, other (fair to good air entry bilaterally) Cardiovascular: regular rate-rhythm, S1 and S2, systolic murmur (soft RENATA at card base) Gastrointestinal: No tender; soft; No guarding, No rebound; audible bowel sounds Extremities: swelling (mild, bilateral leg edema); No clubbing, No cyanosis Neurologic/Psychiatric: oriented x 3, other (moves all limbs equally) Skin: normal color, warm/dry; No rash on exposed areas, No ulcerations on exposed areas Data Review Labs Laboratory Tests 04/13/22 05:51: Sodium Level 142, Potassium Level 5.0, Chloride Level 112H, Carbon Dioxide Level 18L, Anion Gap 12, Blood Urea Nitrogen 10, Creatinine 0.94, Estimat Glomerular Filtration Rate 104, BUN/Creatinine Ratio 11, Glucose Level 105, Calcium Level 8.7, Corrected Calcium 8.9, Magnesium Level 2.1, Total Bilirubin 0.4, Aspartate Amino Transf (AST/SGOT) 43H, Alanine Aminotransferase (ALT/SGPT) 36, Alkaline Phosphatase 59, Myoglobin 41.6, Troponin I 0.043H, Total Protein 7.5, Albumin 3.8 04/13/22 06:13: White Blood Count 11.2H, Red Blood Count 5.31, Hemoglobin 15.0, Hematocrit 46, Mean Corpuscular Volume 86, Mean Corpuscular Hemoglobin 28, Mean Corpuscular Hemoglobin Concent 33, Red Cell Distribution Width 14.2, Platelet Count 366, Mean Platelet Volume 9.6, Immature Granulocyte % (Auto) 1, Neutrophils (%) (Auto) 63, Lymphocytes (%) (Auto) 25, Monocytes (%) (Auto) 6, Eosinophils (%) (Auto) 4, Basophils (%) (Auto) 1, Neutrophils # (Auto) 7.1, Lymphocytes # (Auto) 2.9, Monocytes # (Auto) 0.7, Eosinophils # (Auto) 0.4H, Basophils # (Auto) 0.1, Immature Granulocyte # (Auto) 0.1, Prothrombin Time 13.5, INR Comment 1.0, Activated Partial Thromboplast Time 29, C-Reactive Protein High Sensitivity 0.41, B-Type Natriuretic Peptide 534.0H 04/13/22 06:15: Influenza Type A (RT-PCR) Not Detected, Influenza Type B (RT-PCR) Not Detected, SARS-CoV-2 RNA (RT-PCR) Not Detected 04/13/22 07:55: Urine Opiates Screen NEGATIVE, Urine Oxycodone Screen NEGATIVE, Urine Methadone Screen NEGATIVE, Urine Propoxyphene Screen NEGATIVE, Urine Barbiturates Screen NEGATIVE, Ur Tricyclic Antidepressants Screen NEGATIVE, Urine Phencyclidine Screen NEGATIVE, Urine Amphetamines Screen POSITIVEH, Urine Methamphetamines Screen POSITIVEH, Urine Benzodiazepines Screen NEGATIVE, Urine Cocaine Screen NEGATIVE, Urine Cannabinoids Screen POSITIVEH Laboratory Tests 04/13/22 05:51 04/13/22 06:13 A/P-Cardiology Assessment/Admission Diagnosis Acute on chronic systolic heart failure - ECHOCARDIOGRAM (03/23/2021) by Dr. Gonzalez: Severe left ventricular dilatation with normal wall thickness. Severe left ventricular systolic dysfunction with an estimated ejection fraction of 15-20% with global hypokinesis. The left ventricular diastolic function is indeterminate. The left atrium is severely dilated with a volume index of 56 mL/m. The right atrium is moderately dilated with an area of 25 cm. There is mild mitral regurgitation. The estimated pulmonary artery systolic pressure is 40 mmHg assuming a right atrial pressure of 5 mmHg. Non-ischemic Cardiomyopathy - CARDIAC CATHETERIZATION (03/24/2021) by Dr. Gonzalez: Low systemic blood pressure with normal left ventricular end-diastolic pressure. Angiographically normal-appearing coronary arteries in a right dominant system but with diffusely slow flow consistent with a low output state. HTN H/O Methamphetamine abuse - tested positive during this hospitalization Discussion and Recomendations * Optimized med therapy for dilated cm with acute HFrEF * Carvedilol * Entresto * Jardiance * Spironolactone * Titrate above meds as allowed by bp * Monitor labs * Advised immediate and complete cessation of meth or any other street drug use * Repeat echo MICHELLE TORREZ MD FACP FAC CCDS Apr 13, 2022 16:40
[2022-04-14 00:18] VITALS: BP 134/54
[2022-04-14 03:43] VITALS: BP 119/89
[2022-04-14 05:11] LABS: BASOPHILS # (AUTO) 0.1 10^3/uL (0.0-0.1); BASOPHILS % (AUTO) 1 % (0-10); EOSINOPHILS # (AUTO) 0.4 10^3/uL (0.0-0.3); EOSINOPHILS % (AUTO) 4 % (0-10); HEMATOCRIT 47 % (40-54); HEMOGLOBIN 15.2 g/dL (13.3-17.7); LYMPHOCYTES # (AUTO) 2.2 10^3/uL (1.0-4.0); LYMPHOCYTES % (AUTO) 23 % (12-44); MEAN CORPUSCULAR HEMOGLOBIN 28 pg (25-34); MEAN CORPUSCULAR HGB CONC 33 g/dL (32-36); MEAN CORPUSCULAR VOLUME 86 fL (80-99); MEAN PLATELET VOLUME 10.4 fL (9.0-12.2); MONOCYTES # (AUTO) 0.9 10^3/uL (0.0-1.0); MONOCYTES % (AUTO) 10 % (0-12); NEUTROPHILS # (AUTO) 5.9 10^3/uL (1.8-7.8); NEUTROPHILS % (AUTO) 62 % (42-75); PLATELET COUNT 312 10^3/uL (130-400); WHITE BLOOD COUNT 9.6 10^3/uL (4.3-11.0)
[2022-04-14 05:37] LABS: CALCIUM 9.6 MG/DL (8.5-10.1)
[2022-04-14 05:38] LABS: TOTAL PROTEIN 7.6 GM/DL (6.4-8.2)
[2022-04-14 05:40] LABS: BILIRUBIN,TOTAL 0.7 MG/DL (0.1-1.0)
[2022-04-14 05:42] LABS: CREATININE SERUM 0.98 MG/DL (0.60-1.30)
[2022-04-14] MEDS: FUROSEMIDE 40 MG/4 ML INJ (LASIX) IVP SCH ×2 (06:12→17:39)
[2022-04-14 07:00] VITALS: BP 132/82
[2022-04-14] MEDS: ASPIRIN E.C. 81 MG (ECOTRIN) TAB PO SCH (09:04)
[2022-04-14] MEDS: DOCUSATE SODIUM 100 MG (COLACE) CAP PO SCH ×2 (09:04→20:05)
[2022-04-14] MEDS: ENOXAPARIN 40 MG/0.4 ML (LOVENOX) SYR SC SCH (09:04)
[2022-04-14] MEDS: SENNOSIDES 8.6 MG (SENOKOT) TAB PO SCH ×2 (09:04→20:06)
[2022-04-14] MEDS: EMPAGLIFLOZIN 10 MG TABLET (JARDIANCE) PO SCH (09:04)
[2022-04-14] MEDS: SPIRONOLACTONE 25 MG (ALDACTONE) TAB PO SCH (09:04)
--- NOTE | 2022-04-14 10:01 | Progress Note - Hospitalist ---
TIO HERZOG 04/14/22 1001: Subjective HPI/CC On Admission Date Seen by Provider: Apr 14, 2022 Time Seen by Provider: 09:54 Subjective/Events-last exam Patient is being seen in f/u for acute exacerbation of HFrEF Resting comfortably in bed receiving medications when I came into the room. Patient feels much better today. States breathing is much easier. No other complaints at this time. Hospital Course: 41 year old male with a past medical history of dilated cardiomyopathy, HFrEF, and polysubstance abuse presented to [facility] ER on 04/13 with a chief complaint of progressively worsening dyspnea and orthopnea. Patient had findings consistent with acute exacerbation of HFrEF. Patient also had a positive UA for cannabis and methamphetamine. In the ED patient was started on furosemide 40 mg IV, metoprolol 25 mg p.o., and lisinopril 5 mg p.o. per Cardiology recommendations. Patient was then admitted to Cardiac Stepdown unit. Dr. 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 Cardiology recommended entresto, carvedilol, spironolactone, and jardiance for management of HFrEF. Patient is also going to be fitted for a life vest either as inpatient or in the outpatient setting. Repeat Echo was done before discharge. Patient is to have close follow up with a local ceramics instructor, presumably Dr. Escobar, in the outpatient setting. Review of Systems General: No Chills, No Night Sweats HEENT: No Head Aches, No Visual Changes Pulmonary: No Dyspnea, No Cough Cardiovascular: No: Chest Pain, Palpitations Gastrointestinal: No: Nausea, Vomiting, Abdominal Pain Genitourinary: No Dysuria, No Frequency Neurological: No: Weakness, Numbness Objective Exam Vital Signs Vital Signs Date Time Temp Pulse Resp B/P (MAP) Pulse Ox O2 Delivery O2 Flow Rate FiO2 04/14/22 11:00 36.7 93 19 121/89 (100) 98 Room Air 04/13/22 15:31 0.00 04/13/22 15:21 21 Capillary Refill : Less Than 3 Seconds General Appearance: No Apparent Distress, WD/WN HEENT: PERRL/EOMI (EOMI), Normal ENT Inspection (externally) Neck: Non Tender, Supple Respiratory: Lungs Clear, Normal Breath Sounds, No Accessory Muscle Use, No Respiratory Distress Cardiovascular: Regular Rate, Rhythm, No Gallop, No JVD, No Murmur Gastrointestinal: Non Tender, Soft Rectal: Deferred Extremity: No Calf Tenderness, No Pedal Edema Neurologic/Psychiatric: Alert, Oriented x3, Normal Mood/Affect Skin: Normal Color, Warm/Dry Results/Procedures Lab Laboratory Tests 04/14/22 04:16 Patient resulted labs reviewed. Imaging: Reviewed Imaging Films, Reviewed Imaging Report Assessment/Plan Assessment and Plan Assess & Plan/Chief Complaint Acute Exacerbation of HFrEF Dilated Cardiomyopathy - Diagnosed at previous hopsitalization one year ago, which showed EF of 20% -Cardiology planning on repeating ECHO - Cardiology starting Entresto, Carvedilol, Jardiance, Sprionolactone - Patient is interested in Life Vest. Cardiology is working on setting up with patient Elevated Troponin - EKG negative for ischemic ST elevation or depressions - Unsure if from CHF vs demand ischemia vs CAD, though CHF seems most likely at this time. - Last Heart Cath showed no signs of CAD (03/2021) - Management per cardiology Hypertension - Management per cardiology - Entresto, Carvedilol, Jardiance, Sprionolactone Polysubstance abuse - Patient positive for methamphetamine and marijuana in the ED - Could be part of the reason for tachycardia on presentation; Patient appeared sober upon my initial interview with him - Can offer patient resources for outpatient rehab or counseling - Recommended cessation of any illicit substance DVT Prophylaxis: Lovenox Dispo: D/C home today or tomorrow depending on life vest measurements FINA MASSEY DO 04/15/22 0508: Supervisory-Addendum Brief Verification & Attestation Participated in pt care: history, MDM, physical Personally performed: exam, history, MDM, supervision of care Care discussed with: Medical Student Procedures: n/a Results interpretation: Verified all documentation Verification and Attestation of Medical Student E/M Service A medical student performed and documented this service in my presence. I reviewed and verified all information documented by the medical student and made modifications to such information, when appropriate. I personally performed the physical exam and medical decision making. Fina Massey Apr 15, 2022,05:08 [place]IO Apr 14, 2022 10:01 FINA MASSEY DO Apr 15, 2022 05:08
[2022-04-14 11:00] VITALS: BP 121/89
[2022-04-14] MEDS ORDERED: SACU1TAB2 PO (12:16)
[2022-04-14] MEDS ORDERED: EMPA10TA PO (12:16)
[2022-04-14] MEDS ORDERED: CARV3.122 PO (12:16)
[2022-04-14] MEDS ORDERED: FURO-124 PO (12:16)
[2022-04-14] MEDS ORDERED: ASPI-1238 PO (12:16)
[2022-04-14] MEDS ORDERED: SPIR25TA5 PO (12:16)
--- NOTE | 2022-04-14 12:17 | Discharge Summary ---
Discharge Summary Hospital Course Hospital Course Date of Admission: Apr 13, 2022 at 08:02 Admission Diagnosis : Family Physician/Provider: [place], 1928–1983 Date of Discharge: 04/14/22 Discharge Diagnosis: [ ] Hospital Course: [ ] Labs and Pending Lab Test: Laboratory Tests 04/14/22 04:16: White Blood Count 9.6, Red Blood Count 5.44, Hemoglobin 15.2, Hematocrit 47, Mean Corpuscular Volume 86, Mean Corpuscular Hemoglobin 28, Mean Corpuscular Hemoglobin Concent 33, Red Cell Distribution Width 14.1, Platelet Count 312, Mean Platelet Volume 10.4, Immature Granulocyte % (Auto) 1, Neutrophils (%) (Auto) 62, Lymphocytes (%) (Auto) 23, Monocytes (%) (Auto) 10, Eosinophils (%) (Auto) 4, Basophils (%) (Auto) 1, Neutrophils # (Auto) 5.9, Lymphocytes # (Auto) 2.2, Monocytes # (Auto) 0.9, Eosinophils # (Auto) 0.4H, Basophils # (Auto) 0.1, Immature Granulocyte # (Auto) 0.1, Sodium Level 140, Potassium Level 4.0, Chloride Level 107, Carbon Dioxide Level 21, Anion Gap 12, Blood Urea Nitrogen 20H, Creatinine 0.98, Estimat Glomerular Filtration Rate 99, BUN/Creatinine Ratio 20, Glucose Level 95, Calcium Level 9.6, Corrected Calcium 9.6, Total Bilirubin 0.7, Aspartate Amino Transf (AST/SGOT) 36H, Alanine Aminotransferase (ALT/SGPT) 40, Alkaline Phosphatase 60, Total Protein 7.6, Albumin 4.0, Triglycerides Level 125, Cholesterol Level 144, LDL Cholesterol Direct 101, VLDL Cholesterol 25, HDL Cholesterol 25L Home Meds Active No Active Prescriptions or Reported Medications Discharge Physical Examination Vital Signs Vital Signs Date Time Temp Pulse Resp B/P (MAP) Pulse Ox O2 Delivery O2 Flow Rate FiO2 04/14/22 11:00 36.7 93 19 121/89 (100) 98 Room Air 04/13/22 15:31 0.00 04/13/22 15:21 21 Allergies: Coded Allergies: No Known Drug Allergies (Unverified , 02/10/12) Discharge Summary Date of Admission Apr 13, 2022 at 08:02 Date of Discharge Discharge Date: Apr 14, 2022 Admission Diagnosis AECHF Meth use Cardiomyopathy FINA MASSEY DO Apr 14, 2022 12:17
[2022-04-14 16:41] VITALS: BP 116/86
[2022-04-14] MEDS: SACUBITRIL/VALSARTAN 24/26 MG (ENTRESTO) TABLET PO SCH (18:31)
[2022-04-14 20:00] VITALS: BP 120/81
--- NOTE | 2022-04-14 20:03 | Progress Note - Cardiology ---
Cardiology SOAP Progress Note Subjective: Shortness of breath and gen weakness are slowly improving No n/v/d No cp or palp or syncope Objective: I&O/Vital Signs 04/14/22 04/14/22 04/14/22 04/14/22 08:55 11:00 13:00 14:51 Temp 36.7 Pulse 93 104 Resp 19 B/P (MAP) 121/89 (100) Pulse Ox 98 100 O2 Delivery Room Air Room Air Room Air O2 Flow Rate 0.00 04/14/22 16:41 Temp 36.4 Pulse 103 Resp 16 B/P (MAP) 116/86 (96) Pulse Ox 94 O2 Delivery Room Air 04/14/22 00:00 Intake Total 1140 ml Balance 1140 ml Weight (Pounds): 200 Weight (Calculated Kilograms): [id number] Constitutional: AAO x 3, well-developed, well-nourished Respiratory: No accessory muscle use; chest expansion is symmetric, chest is bilaterally symmetric, other (fair to good air entry bilaterally) Cardiovascular: regular rate-rhythm, S1 and S2, systolic murmur (soft RENATA at card base) Gastrointestional: No tender; soft; No guarding, No rebound; audible bowel sounds Extremities: swelling (mild, bilateral leg edema); No clubbing, No cyanosis Neurologic/Psychiatric: oriented x 3, other (moves all limbs equally) Skin: normal color, warm/dry; No rash on exposed areas, No ulcerations on exposed areas Results/Procedures: Labs Laboratory Tests 04/14/22 04:16: White Blood Count 9.6, Red Blood Count 5.44, Hemoglobin 15.2, Hematocrit 47, Mean Corpuscular Volume 86, Mean Corpuscular Hemoglobin 28, Mean Corpuscular Hemoglobin Concent 33, Red Cell Distribution Width 14.1, Platelet Count 312, Mean Platelet Volume 10.4, Immature Granulocyte % (Auto) 1, Neutrophils (%) (Auto) 62, Lymphocytes (%) (Auto) 23, Monocytes (%) (Auto) 10, Eosinophils (%) (Auto) 4, Basophils (%) (Auto) 1, Neutrophils # (Auto) 5.9, Lymphocytes # (Auto) 2.2, Monocytes # (Auto) 0.9, Eosinophils # (Auto) 0.4H, Basophils # (Auto) 0.1, Immature Granulocyte # (Auto) 0.1, Sodium Level 140, Potassium Level 4.0, Chloride Level 107, Carbon Dioxide Level 21, Anion Gap 12, Blood Urea Nitrogen 20H, Creatinine 0.98, Estimat Glomerular Filtration Rate 99, BUN/Creatinine Ratio 20, Glucose Level 95, Calcium Level 9.6, Corrected Calcium 9.6, Total Bilirubin 0.7, Aspartate Amino Transf (AST/SGOT) 36H, Alanine Aminotransferase (ALT/SGPT) 40, Alkaline Phosphatase 60, Total Protein 7.6, Albumin 4.0, Triglycerides Level 125, Cholesterol Level 144, LDL Cholesterol Direct 101, VLDL Cholesterol 25, HDL Cholesterol 25L A/P: Assessment: Acute on chronic HFrEF due to dilated cardiomyopathy - Echo on 04/14/22: LVEF 15-20%, mod MR, mild enlargement of LA Non-ischemic Cardiomyopathy - CARDIAC CATHETERIZATION (03/24/2021) by Dr. Gonzalez: Low systemic blood pressure with normal left ventricular end-diastolic pressure. Angiographically normal-appearing coronary arteries in a right dominant system but with diffusely slow flow consistent with a low output state. HTN H/o Methamphetamine abuse - tested positive during this hospitalization Plan: * Optimized med therapy for dilated cm with acute HFrEF * Carvedilol * Entresto * Jardiance * Spironolactone * Titrate above meds as allowed by bp * Monitor labs * Advised immediate and complete cessation of meth or any other street drug use * Advised Life Vest. Ordered. Home on Life Vest. Outpt f/u advised MICHELLE TORREZ MD FACP FAC CCDS Apr 14, 2022 20:03
[2022-04-15 00:51] VITALS: BP 110/78
[2022-04-15 04:40] VITALS: BP 112/77
[2022-04-15 05:10] LABS: BASOPHILS # (AUTO) 0.1 10^3/uL (0.0-0.1); BASOPHILS % (AUTO) 1 % (0-10); EOSINOPHILS # (AUTO) 0.4 10^3/uL (0.0-0.3); EOSINOPHILS % (AUTO) 4 % (0-10); HEMATOCRIT 50 % (40-54); HEMOGLOBIN 16.6 g/dL (13.3-17.7); LYMPHOCYTES # (AUTO) 2.2 10^3/uL (1.0-4.0); LYMPHOCYTES % (AUTO) 25 % (12-44); MEAN CORPUSCULAR HEMOGLOBIN 28 pg (25-34); MEAN CORPUSCULAR HGB CONC 33 g/dL (32-36); MEAN CORPUSCULAR VOLUME 86 fL (80-99); MEAN PLATELET VOLUME 10.6 fL (9.0-12.2); MONOCYTES # (AUTO) 1.1 10^3/uL (0.0-1.0); MONOCYTES % (AUTO) 13 % (0-12); NEUTROPHILS % (AUTO) 57 % (42-75); PLATELET COUNT 341 10^3/uL (130-400); WHITE BLOOD COUNT 8.8 10^3/uL (4.3-11.0)
[2022-04-15 05:41] LABS: ALBUMIN 4.2 GM/DL (3.2-4.5)
[2022-04-15 05:42] LABS: POTASSIUM 3.7 MMOL/L (3.6-5.0)
[2022-04-15 05:43] LABS: CALCIUM 9.6 MG/DL (8.5-10.1)
[2022-04-15 05:46] LABS: BILIRUBIN,TOTAL 0.5 MG/DL (0.1-1.0)
[2022-04-15 05:48] LABS: CREATININE SERUM 0.99 MG/DL (0.60-1.30)
[2022-04-15] MEDS: FUROSEMIDE 40 MG/4 ML INJ (LASIX) IVP SCH (06:36)
[2022-04-15] MEDS: SACUBITRIL/VALSARTAN 24/26 MG (ENTRESTO) TABLET PO SCH (06:36)
[2022-04-15 08:00] VITALS: BP 114/77
[2022-04-15] MEDS: ASPIRIN E.C. 81 MG (ECOTRIN) TAB PO SCH (08:28)
[2022-04-15] MEDS: SPIRONOLACTONE 25 MG (ALDACTONE) TAB PO SCH (08:28)
[2022-04-15] MEDS: ENOXAPARIN 40 MG/0.4 ML (LOVENOX) SYR SC SCH (08:28)
[2022-04-15] MEDS: EMPAGLIFLOZIN 10 MG TABLET (JARDIANCE) PO SCH (08:28)
[2022-04-15] MEDS: SENNOSIDES 8.6 MG (SENOKOT) TAB PO SCH (08:28)
[2022-04-15] MEDS: DOCUSATE SODIUM 100 MG (COLACE) CAP PO SCH (08:29)
--- NOTE | 2022-04-15 09:55 | Progress Note ---
MINOTIO 04/15/22 0955: Progress Note 41 year old male with a past medical history of dilated cardiomyopathy, HFrEF, and polysubstance abuse presented to [facility] ER on 04/13 with a chief complaint of progressively worsening dyspnea and orthopnea. Patient had findings consistent with acute exacerbation of HFrEF. Patient also had a positive UA for cannabis and methamphetamine. In the ED patient was started on furosemide 40 mg IV, metoprolol 25 mg p.o., and lisinopril 5 mg p.o. per Cardiology recommendations. Patient was then admitted to Cardiac Stepdown unit. Dr. 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 Cardiology recommended entresto, carvedilol, spironolactone, and jardiance for management of HFrEF. Patient was fitted for a life vest before discharge. Repeat echo showed LVH, EF 15-20%, moderate mitral valve regurgitation, and mild L atrial dilation. Patient is to have close follow up with a local tire builder heavy service, presumably Dr. Escobar, in the outpatient setting. KARRIE ANAYA DO 04/16/22 0608: Supervisory-Addendum Brief Verification & Attestation Participated in pt care: history, MDM, physical Personally performed: exam, history, MDM, supervision of care Care discussed with: Medical Student Procedures: n/a Results interpretation: Verified all documentation Verification and Attestation of Medical Student E/M Service A medical student performed and documented this service in my presence. I reviewed and verified all information documented by the medical student and made modifications to such information, when appropriate. I personally performed the physical exam and medical decision making. Karrie Anaya Apr 16, 2022,06:08 TIO HERZOG Apr 15, 2022 09:55 KARRIE ANAYA DO Apr 16, 2022 06:08
--- NOTE | 2022-04-15 11:48 | Discharge Summary ---
Discharge Summary Hospital Course Was the Problem List Reviewed?: Yes Problems/Dx: (1) Acute heart failure Qualifiers: Qualified Codes: I50.21 - Acute systolic (congestive) heart failure (2) Methamphetamine abuse Status: Acute Hospital Course Date of Admission: Apr 13, 2022 at 08:02 Admission Diagnosis : Family Physician/Provider: [facility] Date of Discharge: 04/15/22 Discharge Diagnosis: [ ] Hospital Course: 41 year old male with a past medical history of dilated cardiomyopathy, HFrEF, and polysubstance abuse presented to [facility] ER on 04/13 with a chief complaint of progressively worsening dyspnea and orthopnea. Patient had findings consistent with acute exacerbation of HFrEF. Patient also had a positive UA for cannabis and methamphetamine. In the ED patient was started on furosemide 40 mg IV, metoprolol 25 mg p.o., and lisinopril 5 mg p.o. per Cardiology recommendations. Patient was then admitted to Cardiac Stepdown unit. Dr. 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 Cardiology recommended entresto, carvedilol, spironolactone, and jardiance for management of HFrEF. Patient was fitted for a life vest before discharge. Repeat echo showed LVH, EF 15-20%, moderate mitral valve regurgitation, and mild L atrial dilation. Patient is to have close follow up with a local leak detector, presumably Dr. Escobar, in the outpatient setting. TIO HERZOG Labs and Pending Lab Test: Laboratory Tests 04/15/22 04:45: White Blood Count 8.8, Red Blood Count 5.88H, Hemoglobin 16.6, Hematocrit 50, Mean Corpuscular Volume 86, Mean Corpuscular Hemoglobin 28, Mean Corpuscular Hemoglobin Concent 33, Red Cell Distribution Width 14.0, Platelet Count 341, Mean Platelet Volume 10.6, Immature Granulocyte % (Auto) 1, Neutrophils (%) (Auto) 57, Lymphocytes (%) (Auto) 25, Monocytes (%) (Auto) 13H, Eosinophils (%) (Auto) 4, Basophils (%) (Auto) 1, Neutrophils # (Auto) 5.0, Lymphocytes # (Auto) 2.2, Monocytes # (Auto) 1.1H, Eosinophils # (Auto) 0.4H, Basophils # (Auto) 0.1, Immature Granulocyte # (Auto) 0.1, Sodium Level 140, Potassium Level 3.7, Chloride Level 106, Carbon Dioxide Level 20L, Anion Gap 14, Blood Urea Nitrogen 21H, Creatinine 0.99, Estimat Glomerular Filtration Rate 98, BUN/Creatinine Ratio 21, Glucose Level 111H, Calcium Level 9.6, Corrected Calcium 9.4, Total Bilirubin 0.5, Aspartate Amino Transf (AST/SGOT) 44H, Alanine Aminotransferase (ALT/SGPT) 49, Alkaline Phosphatase 64, Total Protein 8.0, Albumin 4.2 Home Meds Active Lasix (Furosemide) 40 Mg Tablet 40 Mg PO DAILY Jardiance (Empagliflozin) 10 Mg Tablet 10 Mg PO DAILY Aspirin EC (Aspirin) 81 Mg Tablet.dr 81 Mg PO DAILY Spironolactone 25 Mg Tablet 25 Mg PO DAILY Entresto 24 mg-26 mg Tablet (Sacubitril/Valsartan) 24 Mg-26 Mg Tablet 1 Tab PO Q12H Carvedilol 3.125 Mg Tablet 3.125 Mg PO BID Assessment/Pt Instructions PCP 1 week Discharge Planning: <30 minutes discharge planning Discharge Physical Examination Vital Signs Vital Signs Date Time Temp Pulse Resp B/P (MAP) Pulse Ox O2 Delivery O2 Flow Rate FiO2 04/15/22 11:12 Room Air 04/15/22 09:00 99 04/15/22 08:00 36.1 103 19 114/77 (89) 04/14/22 14:51 0.00 04/13/22 15:21 21 General Appearance: No Apparent Distress, WD/WN, Chronically ill Allergies: Coded Allergies: No Known Drug Allergies (Unverified , 02/10/12) Discharge Summary Date of Admission Apr 13, 2022 at 08:02 Date of Discharge Discharge Date: Apr 14, 2022 Admission Diagnosis AECHF Meth use Cardiomyopathy FINA MASSEY DO Apr 15, 2022 11:48
== END 2022-04-15 11:30 | disposition home or self-care (01) | DRG 291 ==
LOC: EDUNIT# 05:18 → ER 05:21 → CSD 08:02
PROVIDERS: ADMIT Internal Medicine; ATTEND Internal Medicine
DX: I11.0 Hypertensive heart disease with heart failure (principal); I50.23 Acute on chronic systolic (congestive) heart failure; I42.0 Dilated cardiomyopathy; I34.0 Nonrheumatic mitral (valve) insufficiency; F15.10 Other stimulant abuse, uncomplicated; F12.10 Cannabis abuse, uncomplicated; K21.9 Gastro-esophageal reflux disease without esophagitis; Z20.822 Contact with and (suspected) exposure to COVID-19; Z79.82 Long term (current) use of aspirin; Z79.899 Other long term (current) drug therapy
CPT/HCPCS: 36415; 71045; 80053; 80061; 80306; 83735; 83874; 83880; 84484; 85025; 85610; 85730; 86141; 87636; 93005; 93041; 93306

== ENCOUNTER 2022-12-13 16:56 | Emergency (ER) | payer OTHER ==
[~2022-12-13] VITALS: Ht 170 cm; Wt 86.0 kg
[~2022-12-13 16:56] MED LIST changes: +CARV3.122 PO; +EMPA10TA PO; +FURO-124 PO; +SACU1TAB2 PO; +SPIR25TA5 PO
--- NOTE | 2022-12-13 17:23 | ED Chest Pain ---
General Chief Complaint: Respiratory Problems Stated Complaint: CHF | SOB Nursing Triage Note: PT AMBULATORY TO ER. REPOTS SOB ONSET 2-3 DAYS AGO. HX OF CHF. PT WAS RECENTLY INCARCERATED, RAN OUT OF MEDS 2 DAYS AGO. PT REPORTS MISSED 2 DOCTOR'S APPTS WHILE HE WAS INCARCERATED. PT REPORTS ALSO FIGHTING OFF AN URI. Source: patient Exam Limitations: no limitations (SUSAN LEE MD) History of Present Illness Date Seen by Provider: Dec 13, 2022 Time Seen by Provider: 17:10 Initial Comments This 42-year-old man presents to the emergency room by private vehicle with complaints of chest discomfort extending into the abdomen and shortness of breath. He describes a "bad URI" with cough and congestion over the past few days as well. He was recently incarcerated and released. He missed his doctor's appointment when he was incarcerated and is therefore run out of medications. He gives a history of heart failure and hypertension. He admits to smoking and marijuana use but denies any alcohol or other illicit substances. He is presently on house arrest. His primary care provider is Dr. Gil. His animal control supervisor is Dr. Escobar. He has been afebrile. He denies any history of cor onary artery disease. His record reveals a heart cath in 2021 demonstrating no coronary artery disease but an ejection fraction of 15 to 20%. Patient denies history of diabetes but he is on Jardiance according to his pill bottles. (SUSAN LEE MD) Allergies and Home Medications Allergies Coded Allergies: No Known Drug Allergies (Unverified , 02/10/12) Patient Home Medication List Home Medication List Reviewed: Yes (SUSAN LEE MD) Aspirin (Aspirin EC) 81 Mg Tablet., 81 MG PO DAILY Prescribed by: FINA MASSEY on 04/14/221215 Carvedilol (Carvedilol) 3.125 Mg Tablet, 3.125 MG PO BID Prescribed by: FINA MASSEY on 04/14/221215 Empagliflozin (Jardiance) 10 Mg Tablet, 10 MG PO DAILY Prescribed by: FINA MASSEY on 04/14/221215 Furosemide (Lasix) 40 Mg Tablet, 40 MG PO DAILY Prescribed by: FINA MASSEY on 3/9/23 1216 Sacubitril/Valsartan (Entresto 24 mg-26 mg Tablet) 24 Mg-26 Mg Tablet, 1 TAB PO Q12H Prescribed by: FINA MASSEY on 04/14/22 121 Spironolactone (Spironolactone) 25 Mg Tablet, 25 MG PO DAILY Prescribed by: FINA MASSEY on 04/14/22 1216 Review of Systems Review of Systems Constitutional: no symptoms reported EENTM: No Symptoms Reported Respiratory: See HPI Cardiovascular: See HPI Gastrointestinal: See HPI Genitourinary: No Symptoms Reported Musculoskeletal: no symptoms reported Skin: no symptoms reported Psychiatric/Neurological: No Symptoms Reported Endocrine: No Symptoms Reported Hematologic/Lymphatic: No Symptoms Reported (SUSAN LEE MD) Past Zutagwo-Hjslwz-Stbwat Hx Patient Social History Tobacco Use?: Yes Tobacco type used: Cigarettes Smoking Status: Current Everyday Smoker Substance use?: Yes Substance type: Marijuana Alcohol Use?: No Pt feels they are or have been: No (SUSAN LEE MD) Immunizations Up To Date Tetanus Booster (TDap): Less than 5yrs First/Initial COVID19 Vaccinat: RECEIVED, UNK WHEN Second COVID19 Vaccination Lasha: JAN 2021 Third COVID19 Vaccination Date: MAR 2021 COVID19 Vaccine Windows Admin: J & J (SUSAN LEE MD) Seasonal Allergies Seasonal Allergies: No (SUSAN LEE MD) Past Medical History Surgery/Hospitalization HX: None Surgeries: Yes Cardiac Respiratory: No Cardiac: Yes (Cardiomyopathy and congestive heart failure) Cardiomyopathy (EF 15 to 20% on heart cath 2021), Hypertension Neurological: No Reproductive Disorders: No Genitourinary: No Gastrointestinal: Yes Gastroesophageal Reflux Musculoskeletal: No Endocrine: No Cancer: No Psychosocial: No Integumentary: Yes (MRSA) Blood Disorders: No (SUSAN LEE MD) Family Medical History Cancer (SUSAN LEE MD) Physical Exam Vital Signs Vital Signs - First Documented 12/13/22 17:02 Temp 36.6 Pulse 123 Resp 20 B/P (MAP) 127/91 (103) Pulse Ox 98 O2 Delivery Room Air (LOYD REINA MD) Vital Signs Capillary Refill : (SUSAN LEE MD) Height, Weight, BMI Height: 5'7.00" Weight: 200lbs. oz. 90.016007eu; 29.00 BMI Method:Stated General Appearance: WD/WN, Mild Distress (Dyspnea and chest pain) HEENT: Normal ENT Inspection Neck: Normal Inspection; No JVD Respiratory: Lungs Clear, Normal Breath Sounds, Other (Dyspnea) Cardiovascular: Regular Rate, Rhythm, No Edema, No Murmur Gastrointestinal: Non Tender, Soft; No Distended Extremity: Normal Inspection, Non Tender, No Calf Tenderness Neurologic/Psychiatric: Alert, Oriented x3, No Motor/Sensory Deficits, Normal Mood/Affect Skin: Normal Color, Warm/Dry (SUSAN LEE MD) Progress/Results/Core Measures Results/Orders Lab Results Laboratory Tests Test 12/13/22 17:20 12/13/22 17:28 12/13/22 18:23 Range/Units White Blood Count 10.6 4.3-11.0 10^3/uL Red Blood Count 5.33 4.30-5.52 10^6/uL Hemoglobin 14.9 13.3-17.7 g/dL Hematocrit 47 40-54 % Mean Corpuscular Volume 88 80-99 fL Mean Corpuscular Hemoglobin 28 25-34 pg Mean Corpuscular Hemoglobin Concent 32 32-36 g/dL Red Cell Distribution Width 13.5 10.0-14.5 % Platelet Count 306 130-400 10^3/uL Mean Platelet Volume 9.6 9.0-12.2 fL Immature Granulocyte % (Auto) 0 % Neutrophils (%) (Auto) 67 42-75 % Lymphocytes (%) (Auto) 23 12-44 % Monocytes (%) (Auto) 7 0-12 % Eosinophils (%) (Auto) 3 0-10 % Basophils (%) (Auto) 1 0-10 % Neutrophils # (Auto) 7.1 1.8-7.8 10^3/uL Lymphocytes # (Auto) 2.4 1.0-4.0 10^3/uL Monocytes # (Auto) 0.7 0.0-1.0 10^3/uL Eosinophils # (Auto) 0.3 0.0-0.3 10^3/uL Basophils # (Auto) 0.1 0.0-0.1 10^3/uL Immature Granulocyte # (Auto) 0.0 0.0-0.1 10^3/uL Prothrombin Time 13.7 12.2-14.7 SEC INR Comment 1.0 0.8-1.4 Activated Partial Thromboplast Time 29 24-35 SEC Sodium Level 138 135-145 MMOL/L Potassium Level 3.8 3.6-5.0 MMOL/L Chloride Level 110 H 98-107 MMOL/L Carbon Dioxide Level 18 L 21-32 MMOL/L Anion Gap 10 5-14 MMOL/L Blood Urea Nitrogen 11 7-18 MG/DL Creatinine 0.78 0.60-1.30 MG/DL Estimat Glomerular Filtration Rate 114 BUN/Creatinine Ratio 14 Glucose Level 100 70-105 MG/DL Calcium Level 8.7 8.5-10.1 MG/DL Corrected Calcium 8.9 8.5-10.1 MG/DL Magnesium Level 2.1 1.6-2.4 MG/DL Total Bilirubin 0.6 0.1-1.0 MG/DL Aspartate Amino Transf (AST/SGOT) 29 5-34 U/L Alanine Aminotransferase (ALT/SGPT) 25 0-55 U/L Alkaline Phosphatase 60 40-136 U/L Myoglobin 33.4 10.0-92.0 NG/ML Troponin I 0.031 H <0.028 NG/ML B-Type Natriuretic Peptide 1401.9 H <100.0 PG/ML Total Protein 7.2 6.4-8.2 GM/DL Albumin 3.8 3.2-4.5 GM/DL Influenza Type A (RT-PCR) Not Detected Not Detecte Influenza Type B (RT-PCR) Not Detected Not Detecte SARS-CoV-2 RNA (RT-PCR) Not Detected Not Detecte Urine Opiates Screen NEGATIVE NEGATIVE Urine Oxycodone Screen NEGATIVE NEGATIVE Urine Methadone Screen NEGATIVE NEGATIVE Urine Barbiturates Screen NEGATIVE NEGATIVE Ur Tricyclic Antidepressants Screen NEGATIVE NEGATIVE Urine Phencyclidine Screen NEGATIVE NEGATIVE Urine Amphetamines Screen POSITIVE H NEGATIVE Urine Methamphetamines Screen POSITIVE H NEGATIVE Urine Benzodiazepines Screen NEGATIVE NEGATIVE Urine Cocaine Screen NEGATIVE NEGATIVE Urine Cannabinoids Screen POSITIVE H NEGATIVE (LOYD REINA MD) My Orders Orders - LOYD REINA MD Furosemide Injection (Furosemide Injec (12/13/22 19:00) (LOYD REINA MD) Medications Given in ED Current Medications Medications Dose Ordered Sig/Arielle Route Start Time Stop Time Status Last Admin Dose Admin Furosemide 40 mg ONCE ONCE IVP 12/13/22 19:00 12/13/22 19:01 12/13/22 18:58 40 MG (LODY REINA MD) Vital Signs/I&O 12/13/22 17:02 Temp 36.6 Pulse 123 Resp 20 B/P (MAP) 127/91 (103) Pulse Ox 98 O2 Delivery Room Air (LOYD REINA MD) Blood Pressure Mean: 103 Progress Progress Note : Time: 18:08 Progress Note Patient was interviewed and examined by me shortly after arrival during the triage process. EKG was obtained and interpreted by me. Sinus tachycardia with no overt ST elevation or depression was noted. Labs were reviewed and interpreted by me CBC and CMP were unremarkable except for CO2 of 18. Troponin was just slightly elevated at 0.031. BNP is pending. Coag panel is normal. COVID and influenza swabs are pending. Radiologist's report of chest x-ray was reviewed as noted below. Cardiomegaly was noted without other significant acute abnormalities. Care of this patient is being transitioned to Dr. Reina at this time. (SUSAN LEE MD) Progress Note : Time: 19:04 Progress Note Patient care assumed at shift change. Patient seen and evaluated by me, 42-year-old male with shortness of breath, congestion, cough for the last week or so. He states he feels like it is getting better but he still feels like he has "fluid in my lungs". Patient has been out of most of his medications for quite a while due to incarceration and subsequent house arrest. He missed his last appointment with his primary care physician at [facility] and is not scheduled until February. He does not have a scheduled follow-up with his animal control supervisor. The only medication that he still has is his carvedilol. Out of his Lasix, spironolactone, Jardiance and lisinopril. He tells me he is not on a congestive heart failure medications specifically. No fevers reported. Exam shows that he is a little dyspneic in conversation but lungs are clear. He has no lower extremity edema or calf tenderness. His heart rate is about 104, his blood pressure is 115/83.EKG compared to previous and no change. No ST elevation or depression is observed. I have reviewed his labs, his troponin is minimally detectable with a slightly increased BNP 1100. This is 3 times what it was in April. The patient adamantly denies chest pain. He did have a heart catheterization in 2021 that showed clean coronaries. He has very significant congestive failure with an EF of 15 to 20% on echo in April of this year. Due to being out of his medications and symptomatic I think giving him a dose of Lasix is the best course of action. He does not really want to be admitted. He is on house arrest. Will refill his medications for 2 months and I have strongly encouraged him to follow-up with Dr. Lawrence his animal control supervisor. Risk of is emphasized to the patient. Giving him a dose of entresto as well as his lasix and carvedilol. REturn precautions strongly encouraged to the patient. He verbalizes understanding and states he will follow up. I encouraged him not to do methamphetamine and provided info on [facility] drug rehab info. (LOYD REINA MD) Initial ECG Impression Date: Dec 13, 2022 Initial ECG Impression Time: 17:22 Initial ECG Rate: 122 Initial ECG Rhythm: S.Tach Comment Sinus tachycardia with no ST elevation or depression. No abnormal intervals or axis deviation. (SUSAN LEE MD) Diagnostic Imaging Diagonstic Imaging: Xray Plain Films/CT/US/NM/MRI: chest Comments NAME: JITENDRA LEMUS [facility] REC#: [id number] PT STATUS: REG ER : 1980 PHYSICIAN: SUSAN LEE MD ADMIT DATE: 12/13/22/ER Draft Date of Exam:12/13/22 CHEST 1 VIEW, AP/PA ONLY CLINICAL INDICATION: Patient with chest pain. EXAM: Portable chest x-ray upright view. COMPARISON: Chest x-ray dated 04/13/2022. FINDINGS: Lungs/pleura: Lungs are clear. There is no pneumothorax. There is no pleural effusion. Mediastinum: Unremarkable. Pulmonary vasculature: Unremarkable. Heart: There is concern for possible mild cardiomegaly. Bones/extrathoracic soft tissue: Unremarkable. IMPRESSION: 1: There is concern for possible mild cardiomegaly. Chest x-ray, PA and lateral views, may help better evaluate. 2: Otherwise, unremarkable chest x-ray exam. Dictated on workstation # [id number] Dict: 12/13/221737 Trans: 12/13/221741 [id number] Interpreted by: CATHY FARR MD (SUSAN LEE MD) Counseling-Symptomatic: 3-10 Minutes Follow-up with PCP to: Discuss Further Options (LOYD REINA MD) Departure Impression Primary Impression: Chest pain Qualified Codes: R07.9 - Chest pain, unspecified Additional Impressions: Dyspnea Qualified Codes: R06.00 - Dyspnea, unspecified Has run out of medications Disposition: HOME, SELF-CARE Condition: Stable Departure-Patient Inst. Decision time for Depature: 19:14 (LOYD REINA MD) Referrals: MICHELLE ESCOBAR MD FACP FACC CCDS BETH GIL DO (PCP/Family) Primary Care Physician Patient Instructions: CHF, OUTPT SUBSTANCE ABUSE RESOURCE Add. Discharge Instructions: Please restart your medications and take them as directed. Lasix 40 mg once daily in the morning Potassium supplement 10 mEq once daily Spironolactone 25 mg once daily Entresto (heart medication) 24-26 mg twice daily Carvedilol 3.125 mg twice daily Continue the baby aspirin daily. You need to follow-up for some drug abuse counseling, mental health help in order to beat your drug addiction. When you use methamphetamine it causes more strain on your heart and worsens your heart failure. This will only cause you to have to come back to the emergency room in worse condition for longer admissions. If you develop any chest pain especially with worsening shortness of breath, swelling or any other emergent, concerning symptoms please come back to the emergency room for reevaluation Please call Dr. Escobar's office for a follow-up appointment [facility] [address] [place] [address] Scripts Carvedilol (Carvedilol) 3.125 Mg Tablet 3.125 MG PO BID, #60 TAB 1 Refill Prov: LYOD REINA MD 12/13/22 Sacubitril/Valsartan (Entresto 24 mg-26 mg Tablet) 24 Mg-26 Mg Tablet 1 TAB PO BID, #90 TAB 1 Refill Prov: LOYD REINA MD 12/13/22 Spironolactone (Spironolactone) 25 Mg Tablet 25 MG PO DAILY, #60 TAB Prov: LOYD REINA MD 12/13/22 Potassium Chloride (K-Tab ER) 10 Meq Tablet.er 10 MEQ PO DAILY, #60 TAB Prov: LOYD REINA MD 12/13/22 Furosemide (Lasix) 40 Mg Tablet 40 MG PO DAILY, #60 TAB Prov: LOYD REINA MD 12/13/22 Copy Copies To 1: BETH GIL V DO Copies To 2: MICHELLE ESCOBAR MD FACP FAC CCDS SUSAN LEE MD Dec 13, 2022 17:23 LOYD REINA MD Dec 13, 2022 19:06
[2022-12-13 17:29] LABS: BASOPHILS # (AUTO) 0.1 10^3/uL (0.0-0.1); BASOPHILS % (AUTO) 1 % (0-10); EOSINOPHILS # (AUTO) 0.3 10^3/uL (0.0-0.3); EOSINOPHILS % (AUTO) 3 % (0-10); HEMATOCRIT 47 % (40-54); HEMOGLOBIN 14.9 g/dL (13.3-17.7); LYMPHOCYTES # (AUTO) 2.4 10^3/uL (1.0-4.0); LYMPHOCYTES % (AUTO) 23 % (12-44); MEAN CORPUSCULAR HEMOGLOBIN 28 pg (25-34); MEAN CORPUSCULAR HGB CONC 32 g/dL (32-36); MEAN CORPUSCULAR VOLUME 88 fL (80-99); MEAN PLATELET VOLUME 9.6 fL (9.0-12.2); MONOCYTES # (AUTO) 0.7 10^3/uL (0.0-1.0); MONOCYTES % (AUTO) 7 % (0-12); NEUTROPHILS # (AUTO) 7.1 10^3/uL (1.8-7.8); NEUTROPHILS % (AUTO) 67 % (42-75); PLATELET COUNT 306 10^3/uL (130-400); WHITE BLOOD COUNT 10.6 10^3/uL (4.3-11.0)
[2022-12-13 17:38] LABS: ALBUMIN 3.8 GM/DL (3.2-4.5); POTASSIUM 3.8 MMOL/L (3.6-5.0)
[2022-12-13 17:39] LABS: CALCIUM 8.7 MG/DL (8.5-10.1)
[2022-12-13 17:40] LABS: PROTHROMBIN TIME PATIENT 13.7 SEC (12.2-14.7); TOTAL PROTEIN 7.2 GM/DL (6.4-8.2)
[2022-12-13 17:42] LABS: BILIRUBIN,TOTAL 0.6 MG/DL (0.1-1.0)
--- NOTE | 2022-12-13 17:42 | Diagnostic Imaging Report ---
CLINICAL INDICATION: Patient with chest pain. EXAM: Portable chest x-ray upright view. COMPARISON: Chest x-ray dated 04/13/2022. FINDINGS: Lungs/pleura: Lungs are clear. There is no pneumothorax. There is no pleural effusion. Mediastinum: Unremarkable. Pulmonary vasculature: Unremarkable. Heart: There is concern for possible mild cardiomegaly. Bones/extrathoracic soft tissue: Unremarkable. IMPRESSION: 1: There is concern for possible mild cardiomegaly. Chest x-ray, PA and lateral views, may help better evaluate. 2: Otherwise, unremarkable chest x-ray exam. Dictated by: Dictated on workstation # [id number]
[2022-12-13 17:44] LABS: CREATININE SERUM 0.78 MG/DL (0.60-1.30)
[2022-12-13 17:47] LABS: MAGNESIUM 2.1 MG/DL (1.6-2.4)
[2022-12-13 18:47] LABS: AMPHETAMINE SCREEN, URINE POSITIVE (NEGATIVE); BARBITURATE SCREEN URINE NEGATIVE (NEGATIVE); CANNABINOID SCREEN, URINE POSITIVE (NEGATIVE); COCAINE SCREEN URINE NEGATIVE (NEGATIVE); METHADONE STAT NEGATIVE (NEGATIVE); OPIATE SCREEN URINE NEGATIVE (NEGATIVE); OXYCODONE STAT NEGATIVE (NEGATIVE); TRICYCLIC ANTIDEPRESSANTS SCRE NEGATIVE (NEGATIVE)
[2022-12-13] MEDS ORDERED: FUROSEMIDE INJECTION 40 MG/4 ML VIAL IVP ONE (19:00)
[2022-12-13] MEDS ORDERED: POTA-185 PO (19:19)
[2022-12-13] MEDS ORDERED: SACU1TAB2 PO (19:19)
[2022-12-13] MEDS ORDERED: FURO-124 PO (19:19)
[2022-12-13] MEDS ORDERED: CARV3.122 PO (19:19)
[2022-12-13] MEDS ORDERED: SPIR25TA5 PO (19:19)
[2022-12-13] MEDS ORDERED: SACUBITRIL/VALSARTAN 24/26 MG TABLET PO ONE (19:30)
[2022-12-13 19:37] VITALS: BP 117/64
[2022-12-19] MEDS ORDERED: CARV3.122 PO ×2 (10:19→10:46)
[2022-12-19] MEDS ORDERED: POTA-177 PO (10:19)
[2022-12-19] MEDS ORDERED: SPIR25TA5 PO ×2 (10:20→10:46)
[2022-12-19] MEDS ORDERED: LISI2.5T13 PO (10:20)
[2022-12-19] MEDS ORDERED: FURO40TA4 PO ×2 (10:20→10:46)
[2022-12-19] MEDS ORDERED: EMPA10TA PO ×2 (10:21→10:46)
[2022-12-19] MEDS ORDERED: ASPI-1238 PO ×2 (10:21→10:46)
[2022-12-19] MEDS ORDERED: SACU1TAB2 PO (10:46)
== END 2022-12-13 19:38 | disposition home or self-care (01) ==
LOC: EDUNIT# 16:56 → ER 16:58
DX: R07.89 Other chest pain (principal); R06.00 Dyspnea, unspecified; R00.0 Tachycardia, unspecified; F17.210 Nicotine dependence, cigarettes, uncomplicated; Z76.0 Encounter for issue of repeat prescription
CPT/HCPCS: 36415; 71045; 80053; 80306; 83735; 83874; 83880; 84484; 85025; 85610; 85730; 87636; 93005; 93041; 96374

== ENCOUNTER 2022-12-17 16:58 | Observation (INO) | payer SELFPAY ==
[~2022-12-17] VITALS: Ht 170 cm; Wt 84.8 kg
[~2022-12-17 16:58] MED LIST changes: +POTA-185 PO
[2022-12-17] MEDS ORDERED: RT-Ipratropium/Albuterol NEB 3 ML VIAL INH ONE (17:15)
[2022-12-17] MEDS ORDERED: methylPREDNISolone INJ 125 MG VIAL IVP ONE (17:15)
[2022-12-17] MEDS ORDERED: ASPIRIN 81 MG CHEWABLE TABLET PO ONE (17:15)
--- NOTE | 2022-12-17 17:21 | ED Chest Pain ---
General Stated Complaint: SOA/CONGESTIVE HEART FAILURE Source: patient Exam Limitations: no limitations History of Present Illness Date Seen by Provider: Dec 17, 2022 Time Seen by Provider: 17:15 Initial Comments Patient is a 42-year-old male with a history of CHF, substance abuse, hypertension, type 2 diabetes, smoking, COPD who presents the ED for shortness of breath. Shortness of breath over the past 2 days. States he wakes up gasping for air. Does notice some shortness of breath with exertion. Denies of any specific chest pain. Does report a cough. Patient states he had similar symptoms earlier this week was seen here in the ED and discharged. Did get improvement but states symptoms return. Denies of any fever chills nausea, vomiting, diarrhea, lower leg swelling. Not currently on anticoagulant besides baby aspirin. Allergies and Home Medications Allergies Coded Allergies: No Known Drug Allergies (Unverified , 02/10/12) Patient Home Medication List Home Medication List Reviewed: Yes Aspirin (Aspirin EC) 81 Mg Tablet.dr, 81 MG PO DAILY Prescribed by: FINA MASSEY on 04/14/221215 Carvedilol (Carvedilol) 3.125 Mg Tablet, 3.125 MG PO BID Prescribed by: FINA MASSEY on 04/14/221215 Carvedilol (Carvedilol) 3.125 Mg Tablet, 3.125 MG PO BID Prescribed by: LOYD REINA on 12/13/221918 Empagliflozin (Jardiance) 10 Mg Tablet, 10 MG PO DAILY Prescribed by: FINA MASSEY on 04/14/221215 Furosemide (Lasix) 40 Mg Tablet, 40 MG PO DAILY Prescribed by: FINA MASSEY on 04/14/221215 Furosemide (Lasix) 40 Mg Tablet, 40 MG PO DAILY Prescribed by: LOYD REINA on 12/13/221918 Potassium Chloride (K-Tab ER) 10 Meq Tablet.er, 10 MEQ PO DAILY Prescribed by: LOYD REINA on 12/13/221918 Sacubitril/Valsartan (Entresto 24 mg-26 mg Tablet) 24 Mg-26 Mg Tablet, 1 TAB PO Q12H Prescribed by: FINA MASSEY on 04/14/221215 Sacubitril/Valsartan (Entresto 24 mg-26 mg Tablet) 24 Mg-26 Mg Tablet, 1 TAB PO BID Prescribed by: LOYD REINA on 12/13/221918 Spironolactone (Spironolactone) 25 Mg Tablet, 25 MG PO DAILY Prescribed by: FINA MASSEY on 04/14/22 1216 Spironolactone (Spironolactone) 25 Mg Tablet, 25 MG PO DAILY Prescribed by: LOYD REINA on 12/13/221918 Review of Systems Review of Systems Constitutional: No chills, No diaphoresis, No malaise, No weakness EENTM: No Double Vision, No Eye Pain Respiratory: Cough; Denies Orthopnea; Shortness of Air Cardiovascular: Denies Chest Pain Gastrointestinal: Denies Abdominal Pain Genitourinary: Denies Burning, Denies Discharge Musculoskeletal: No back pain, No joint pain Skin: No change in color, No change in hair/nails All Other Systems Reviewed Negative Unless Noted: Yes Past Nxbgfkq-Blonhp-Vnrofm Hx Immunizations Up To Date Tetanus Booster (TDap): Less than 5yrs First/Initial COVID19 Vaccinat: RECEIVED, UNK WHEN Second COVID19 Vaccination Lasha: JAN 2021 Third COVID19 Vaccination Date: MAR 2021 Seasonal Allergies Seasonal Allergies: No Past Medical History Surgery/Hospitalization HX: None Surgeries: Yes Cardiac Respiratory: No Cardiac: Yes (Cardiomyopathy and congestive heart failure) Cardiomyopathy, Hypertension Neurological: No Reproductive Disorders: No Genitourinary: No Gastrointestinal: Yes Gastroesophageal Reflux Musculoskeletal: No Endocrine: No Cancer: No Psychosocial: No Integumentary: Yes (MRSA) Blood Disorders: No Family Medical History Cancer Physical Exam Vital Signs Vital Signs - First Documented 12/17/22 12/17/22 17:18 17:35 Temp 36.1 Pulse 115 Resp 16 B/P (MAP) 109/87 (94) Pulse Ox 96 O2 Delivery Room Air O2 Flow Rate 0 Capillary Refill : Height, Weight, BMI Height: 5'7.00" Weight: 200lbs. oz. 90.238608px; 29.00 BMI Method:Stated General Appearance: No Apparent Distress, WD/WN HEENT: PERRL/EOMI, TMs Normal, Normal ENT Inspection, Pharynx Normal Neck: Full Range of Motion, Normal Inspection, Non Tender, Supple Respiratory: Chest Non Tender, Lungs Clear, Normal Breath Sounds, No Accessory Muscle Use, No Respiratory Distress Cardiovascular: Regular Rate, Rhythm, No Edema, No Gallop, No JVD, No Murmur Gastrointestinal: Normal Bowel Sounds, No Organomegaly, No Pulsatile Mass, Non Tender Extremity: Normal Capillary Refill, Normal Inspection, Normal Range of Motion, Non Tender Neurologic/Psychiatric: Alert, Oriented x3, No Motor/Sensory Deficits, Normal Mood/Affect, 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 Norm as Tested Skin: Normal Color, Warm/Dry Progress/Results/Core Measures Results/Orders Lab Results Laboratory Tests Test 12/17/22 17:10 12/17/22 17:20 Range/Units White Blood Count 11.0 4.3-11.0 10^3/uL Red Blood Count 5.39 4.30-5.52 10^6/uL Hemoglobin 14.9 13.3-17.7 g/dL Hematocrit 47 40-54 % Mean Corpuscular Volume 87 80-99 fL Mean Corpuscular Hemoglobin 28 25-34 pg Mean Corpuscular Hemoglobin Concent 32 32-36 g/dL Red Cell Distribution Width 13.7 10.0-14.5 % Platelet Count 348 130-400 10^3/uL Mean Platelet Volume 9.6 9.0-12.2 fL Immature Granulocyte % (Auto) 0 % Neutrophils (%) (Auto) 76 H 42-75 % Lymphocytes (%) (Auto) 15 12-44 % Monocytes (%) (Auto) 5 0-12 % Eosinophils (%) (Auto) 4 0-10 % Basophils (%) (Auto) 0 0-10 % Neutrophils # (Auto) 8.3 H 1.8-7.8 X 10^3 Lymphocytes # (Auto) 1.7 1.0-4.0 X 10^3 Monocytes # (Auto) 0.5 0.0-1.0 X 10^3 Eosinophils # (Auto) 0.4 H 0.0-0.3 10^3/uL Basophils # (Auto) 0.0 0.0-0.1 10^3/uL Immature Granulocyte # (Auto) 0.0 0.0-0.1 10^3/uL Prothrombin Time 14.2 12.2-14.7 SEC INR Comment 1.1 0.8-1.4 Activated Partial Thromboplast Time 27 24-35 SEC D-Dimer 0.35 0.00-0.49 UG/ML Sodium Level 139 135-145 MMOL/L Potassium Level 3.9 3.6-5.0 MMOL/L Chloride Level 107 98-107 MMOL/L Carbon Dioxide Level 22 21-32 MMOL/L Anion Gap 10 5-14 MMOL/L Blood Urea Nitrogen 15 7-18 MG/DL Creatinine 0.95 0.60-1.30 MG/DL Estimat Glomerular Filtration Rate 102 BUN/Creatinine Ratio 16 Glucose Level 176 H 70-105 MG/DL Calcium Level 9.1 8.5-10.1 MG/DL Corrected Calcium 9.2 8.5-10.1 MG/DL Magnesium Level 1.9 1.6-2.4 MG/DL Total Bilirubin 0.5 0.1-1.0 MG/DL Aspartate Amino Transf (AST/SGOT) 23 5-34 U/L Alanine Aminotransferase (ALT/SGPT) 25 0-55 U/L Alkaline Phosphatase 66 40-136 U/L Myoglobin 29.0 10.0-92.0 NG/ML Troponin I < 0.028 <0.028 NG/ML B-Type Natriuretic Peptide 881.0 H <100.0 PG/ML Total Protein 7.4 6.4-8.2 GM/DL Albumin 3.9 3.2-4.5 GM/DL Lipase 25 8-78 U/L Influenza Type A (RT-PCR) Not Detected Not Detecte Influenza Type B (RT-PCR) Not Detected Not Detecte SARS-CoV-2 RNA (RT-PCR) Not Detected Not Detecte My Orders Orders - VIRGINIA WONG PA Cbc And Automated Diff (12/17/22 17:13) Magnesium (12/17/22 17:13) Chest 1 View, Ap/Pa Only (12/17/22 17:13) Ekg Tracing (12/17/22 17:13) Comprehensive Metabolic Panel (12/17/22 17:13) Myoglobin Serum (12/17/22 17:13) Protime With Inr (12/17/22 17:13) Partial Thromboplastin Time (12/17/22 17:13) O2 (12/17/22 17:13) Monitor-Rhythm Ecg Trace Only (12/17/22 17:13) Lipid Panel (12/18/22 06:00) Ed Iv/Invasive Line Start (12/17/22 17:13) Lipase (12/17/22 17:13) Bnp Yadira (12/17/22 17:13) Troponin I Yadira (12/17/22 17:13) Aspirin Chewable Tablet (Aspirin Chewabl (12/17/22 17:15) Ipratropium/Albuterol Inh Soln (Ipratrop (12/17/22 17:15) Svn Small Volume Nebulizer (12/17/22 17:13) Covid 19 Inhouse Test (12/17/22 17:13) Influenza A And B By Pcr (12/17/22 17:13) Methylprednisolone Sod Succ (Methylpredn (12/17/22 17:15) Fibrin Degradation Products (12/17/22 18:00) Furosemide Injection (Furosemide Injec (12/17/22 18:45) Ua Culture If Indicated (12/17/22 18:45) Drug Screen Stat (Urine) (12/17/22 18:45) Ed Admission (Communication) (12/17/22 18:46) Medications Given in ED Current Medications Medications Dose Ordered Sig/Arielle Route Start Time Stop Time Status Last Admin Dose Admin Albuterol/ Ipratropium 3 ml ONCE ONCE INH 12/17/22 17:15 12/17/22 17:16 DC 12/17/22 17:35 3 ML Aspirin 324 mg ONCE ONCE PO 12/17/22 17:15 12/17/22 17:16 DC 12/17/22 17:35 324 MG Furosemide 40 mg ONCE ONCE IVP 12/17/22 18:45 12/17/22 18:46 DC 12/17/22 18:58 40 MG Methylprednisolone Sodium Succinate 125 mg ONCE ONCE IVP 12/17/22 17:15 12/17/22 17:16 DC 12/17/22 17:35 125 MG Vital Signs/I&O 12/17/22 12/17/22 12/17/22 12/17/22 17:18 17:18 17:35 19:52 Temp 36.1 Pulse 115 100 Resp 16 16 B/P (MAP) 109/87 (94) 92/63 Pulse Ox 96 94 96 O2 Delivery Room Air Room Air Room Air O2 Flow Rate 0 0 0 Comment Sinus tachycardia, left atrial lodgment, moderate T wave normality in the lateral leads, at 105 bpm, QRS duration 109 MS, QTc 440 MS. Departure Communication (PCP) Reviewed previous ER visit, H&P, lab testing. Differential diagnosis CHF exacerbation, COPD exacerbation, pneumonia, sleep apnea, ACS. Patient was evaluated here December 13 for similar symptoms and had troponin 0.031 and a BNP of 1400. Patient was wanting to go home. Patient was out of his medication Entresto, spironolactone, Lasix and restarted his medication. Did have improvement for a few days and then continue developing shortness of breath with talking, ambulation and when he wakes up. On arrival patient slightly winded with talking. Oxygen dropped into the mid upper 80s. Did place him on 2 L for more comfort. No specific chest pain. Obtained cardiac work-up. EKG showed T wave abnormality in the lateral leads concerning for ischemia. Very similar finding from previous EKGs. Did receive full aspirin. Not currently on anticoagulants. Slight diminished lung sounds. Did give a DuoNeb breathing treatment and Solu-Medrol with some improvement.. Every day smoker. Patient did have a cardiac work-up in 2021 cardiac cath which noted ejection fraction of 15 to 20% as well as no significant ischemic changes performed by Dr. Gonzalez. CBC was grossly markable. Chemistry showed normal troponin, kidney function liver function. BNP improved to 881. Chest x-ray showed mild cardiomegaly without evidence of pneumonia, pleural effusion. Patient does not appear to be fluid overload on exam. Symptoms could be multifactorial such as CHF versus COPD. Concerned for the hypoxia. Patient does not have oxygen at home. May have sleep apnea as well. Patient will be admitted under observation. Discussed patient with resident [facility]. Patient will be admitted to Dr. Porras. Consulted Dr. Ponce cardiology who recommends Lasix and will consult. Impression Primary Impression: Dyspnea Disposition: ADMITTED INPATIENT Condition: Stable Admissions Decision to Admit Reason: Admit from ER (General) Decision to Admit/Date: Dec 17, 2022 Time/Decision to Admit Time: 18:35 Departure-Patient Inst. Referrals: BETH GIL DO (PCP/Family) Primary Care Physician VIRGINIA WONG Dec 17, 2022 17:21
[2022-12-17 17:22] LABS: BASOPHILS % (AUTO) 0 % (0-10); EOSINOPHILS # (AUTO) 0.4 10^3/uL (0.0-0.3); EOSINOPHILS % (AUTO) 4 % (0-10); HEMATOCRIT 47 % (40-54); HEMOGLOBIN 14.9 g/dL (13.3-17.7); LYMPHOCYTES # (AUTO) 1.7 X 10^3 (1.0-4.0); LYMPHOCYTES % (AUTO) 15 % (12-44); MEAN CORPUSCULAR HEMOGLOBIN 28 pg (25-34); MEAN CORPUSCULAR HGB CONC 32 g/dL (32-36); MEAN CORPUSCULAR VOLUME 87 fL (80-99); MEAN PLATELET VOLUME 9.6 fL (9.0-12.2); MONOCYTES # (AUTO) 0.5 X 10^3 (0.0-1.0); MONOCYTES % (AUTO) 5 % (0-12); NEUTROPHILS # (AUTO) 8.3 X 10^3 (1.8-7.8); NEUTROPHILS % (AUTO) 76 % (42-75); PLATELET COUNT 348 10^3/uL (130-400)
[2022-12-17 17:32] LABS: ALBUMIN 3.9 GM/DL (3.2-4.5); INR 1.1 (0.8-1.4); PROTHROMBIN TIME PATIENT 14.2 SEC (12.2-14.7)
[2022-12-17 17:33] LABS: CHLORIDE 107 MMOL/L (98-107); POTASSIUM 3.9 MMOL/L (3.6-5.0); SODIUM 139 MMOL/L (135-145)
[2022-12-17 17:34] LABS: CALCIUM 9.1 MG/DL (8.5-10.1)
[2022-12-17 17:35] LABS: GLUCOSE 176 MG/DL (70-105); TOTAL PROTEIN 7.4 GM/DL (6.4-8.2)
[2022-12-17 17:36] LABS: CARBON DIOXIDE 22 MMOL/L (21-32)
[2022-12-17 17:37] LABS: BILIRUBIN,TOTAL 0.5 MG/DL (0.1-1.0)
[2022-12-17 17:38] LABS: ALKALINE PHOSPHATASE 66 U/L (40-136)
[2022-12-17 17:39] LABS: CREATININE SERUM 0.95 MG/DL (0.60-1.30); GFR ESTIMATED 102
[2022-12-17 17:40] LABS: BUN/CREATININE RATIO 16
[2022-12-17 17:41] LABS: ALANINE AMINOTRANSFERASE 25 U/L (0-55); MAGNESIUM 1.9 MG/DL (1.6-2.4)
[2022-12-17 17:42] LABS: LIPASE 25 U/L (8-78)
--- NOTE | 2022-12-17 18:13 | Diagnostic Imaging Report ---
HISTORY: Chest pain. TECHNIQUE: Frontal view of the chest. COMPARISON: 12/13/2022. FINDINGS: Lung volumes are normal. No consolidation is seen. There is no pleural effusion or pneumothorax. The cardiac silhouette is mildly large but stable. IMPRESSION: Stable mild cardiomegaly. Dictated by: Dictated on workstation # [id number]
[2022-12-17] MEDS ORDERED: FUROSEMIDE INJECTION 40 MG/4 ML VIAL IVP ONE (18:45)
--- NOTE | 2022-12-17 19:23 | History & Physical ---
MARCO FRANCOIS MD, RESIDENT 12/17/22 1923: HPI History of Present Illness: CC: Dyspnea Patient is a 42-year-old male with a past medical history of HFrEF with an ejection fraction of 15 to 20% who presented with dyspnea. He states that he has been having episodes of shortness of breath where he will wake up gasping for air when sleeping that has been ongoing for the past couple of weeks. He came to the ED on 12/13 where it was noted he had not been compliant with his medications and thus was provided with refills and recommended to have close follow-up with Dr. Archer. However despite him taking his medications for the last couple of days, he is continuing to have symptoms. He does note a cough that is also been ongoing off and on for the last couple of weeks. Did have a runny nose at one point but noted that it was clear. Denies any chest pain, nausea, vomiting, diarrhea, constipation, dysuria, headaches. Of note, patient is a smoker, however states he quit 1 week ago but used to smoke about half pack per day for 20 years and cut down to 1 cigarette/day for the last 2 months. He does have significant secondhand exposure to smoke at home due to his dad. He also states that he used meth and marijuana 1 week ago. Patient does snore at night as well. He denies ever needing to use any inhalers in the past and denies any sick contacts. He was recently incarcerated about 1-1/2 months ago and thus had missed his appointment with cardiology because of this. In the ED, it was noted that patient would become hypoxic with movement and talking and thus was placed on 2 L nasal cannula. Cardiac work-up and labs were otherwise normal. He was ultimately admitted for observation Source: patient Exam Limitations: no limitations Date seen by provider: Dec 17, 2022 Time Seen by Provider: 19:19 Attending Physician Christopher Hoskins DO PCP Admitting Physician: Attending Physician: Consult Date of Admission Home Medications Home Medications Reviewed patient Home Medication Reconciliation performed by pharmacy medication reconciliations wind commissioning technician and/or nursing. Patients Allergies have been reviewed. Allergies Coded Allergies: No Known Drug Allergies (Unverified , 02/10/12) ECL-Vcvdvp-Vhwfjs Hx Patient Social History Drug of Choice: METH Recent Hopitalizations: No Alcohol Use?: No Substance type: Methamphetamine, Marijuana Immunizations Up To Date Tetanus Booster (TDap): Less than 5yrs First/Initial COVID19 Vaccinat: RECEIVED, UNK WHEN Second COVID19 Vaccination Lasha: RECEIVED, UNK WHEN Third COVID19 Vaccination Date: RECEIVED, UNK WHEN Family Medical History Significant Family History: Cancer Other Significan Family Hx: Breast cancer and onset, heart problems, hypertension, stomach cancer in paternal grandmother Review of Systems ([facility]) Constitutional: No chills, No fever EENTM: No nose congestion Respiratory: cough, dyspnea on exertion, short of breath; No wheezing Cardiovascular: No chest pain, No edema, No palpitations Gastrointestinal: No abdominal pain, No constipation, No diarrhea, No nausea, No vomiting Genitourinary: No dysuria Skin: No no symptoms reported Psychiatric/Neurological: Denies No Symptoms Reported Reviewed Test Results Reviewed Test Results Lab Laboratory Tests 12/17/22 17:10: White Blood Count 11.0, Red Blood Count 5.39, Hemoglobin 14.9, Hematocrit 47, Mean Corpuscular Volume 87, Mean Corpuscular Hemoglobin 28, Mean Corpuscular Hemoglobin Concent 32, Red Cell Distribution Width 13.7, Platelet Count 348, Mean Platelet Volume 9.6, Immature Granulocyte % (Auto) 0, Neutrophils (%) (Auto) 76H, Lymphocytes (%) (Auto) 15, Monocytes (%) (Auto) 5, Eosinophils (%) (Auto) 4, Basophils (%) (Auto) 0, Neutrophils # (Auto) 8.3H, Lymphocytes # (Auto) 1.7, Monocytes # (Auto) 0.5, Eosinophils # (Auto) 0.4H, Basophils # (Auto) 0.0, Immature Granulocyte # (Auto) 0.0, Prothrombin Time 14.2, INR Comment 1.1, Activated Partial Thromboplast Time 27, D-Dimer 0.35, Sodium Level 139, Potassium Level 3.9, Chloride Level 107, Carbon Dioxide Level 22, Anion Gap 10, Blood Urea Nitrogen 15, Creatinine 0.95, Estimat Glomerular Filtration Rate 102, BUN/Creatinine Ratio 16, Glucose Level 176H, Calcium Level 9.1, Corrected Calcium 9.2, Magnesium Level 1.9, Total Bilirubin 0.5, Aspartate Amino Transf (AST/SGOT) 23, Alanine Aminotransferase (ALT/SGPT) 25, Alkaline Phosphatase 66, Myoglobin 29.0, Troponin I < 0.028, B-Type Natriuretic Peptide 881.0H, Total Protein 7.4, Albumin 3.9, Lipase 25 12/17/22 17:20: Influenza Type A (RT-PCR) Not Detected, Influenza Type B (RT-PCR) Not Detected, SARS-CoV-2 RNA (RT-PCR) Not Detected Radiology Chest x-ray (12/17/2022): IMPRESSION: Stable mild cardiomegaly. Physical Exam-([facility]) Physical Exam Vital Signs VS - Last 72 Hours, by Label 12/17/22 12/17/22 12/17/22 17:18 17:18 17:35 Temp 36.1 Pulse 115 Resp 16 B/P (MAP) 109/87 (94) Pulse Ox 96 94 O2 Delivery Room Air Room Air O2 Flow Rate 0 Capillary Refill : Less Than 3 Seconds General Appearance: no apparent distress HEENT: normal ENT inspection Neck: non-tender, full range of motion, supple Respiratory: chest non-tender, no respiratory distress, no accessory muscle use, other (Occasional mild crackles noted, worse in the left lung field) Cardiovascular: no edema, no murmur, tachycardia Gastrointestinal: normal bowel sounds, non tender, soft Extremities: no pedal edema, other (Monitor on left ankle) Neurologic/Psychiatric: alert, oriented x 3 Skin: normal color, warm/dry Assessment/Plan Assessment/Plan Admission Status: Observation (1) Hypoxia Status: Acute Assessment & Plan: Patient has acute hypoxia and is on 2 L nasal cannula. Does not use any oxygen at baseline. Differential is broad at this point however includes heart failure exacerbation versus undiagnosed COPD versus undiagnosed sleep apnea. No improvement in respiratory status with DuoNeb and steroid in the ED. COVID and flu testing negative. Chest x-ray unremarkable. Labs otherwise normal. BNP is elevated consistent with patient's heart failure history Plan: Will manage as heart failure exacerbation for now Ordering a UA and UDS to rule out any drug-related causes Wean oxygen as tolerated If there is a persistent need for oxygen, may need to do ex ox with RT Patient may benefit from PFTs and sleep study in the outpatient (2) Dyspnea Status: Acute Assessment & Plan: See above (3) Heart failure Status: Chronic Assessment & Plan: Patient has a history of heart failure noted with an ech ocardiogram that was completed on 03/23/2021 which estimated an ejection fraction of 15 to 20%. Patient had a heart cath completed on 03/23/2021 as well which did not note any blockages in patient's coronary arteries. Patient was discharged with a LifeVest back in 2021. patient was out of his medications until a couple days ago but has been compliant since then. There is some signs of fluid overload in patient's lungs. BNP 881 which is actually improved compared to measurement on 12/13. Plan: Cardiology consulted, appreciate recommendations We will give patient a dose of IV Lasix 40 mg Continue home medications which is goal-directed therapy Ordering echocardiogram for tomorrow morning Qualifiers: Qualified Codes: I50.22 - Chronic systolic (congestive) heart failure (4) Tobacco abuse Status: Chronic Assessment & Plan: Patient quit smoking about 1 week ago. Continue to encourage abstinence from smoking. (5) Tachycardia Status: Acute Assessment & Plan: Patient tachycardic however stable and asymptomatic at this time. Patient states that he is typically tachycardic and this is normal for him. EKG consistent with prior. We will continue to monitor on telemetry. Clinical Quality Measures Smoking Cessation Counseling: Counseling-Symptomatic: 3-10 Minutes MICHELLE MARTIN MD 12/18/22 1010: Home Medications Allergies Coded Allergies: No Known Drug Allergies (Unverified , 02/10/12) Addendum Physician Addendum Addendum Pt seen on 12/18/22. Admitted with CHF and fluid overload. Responding to lasix. Echo ordered. Cardiology consulted. Will need social work consult as well. I titrated down to 1lpm and he stayed sating 97%. I personally have seen and evaluated the patient and performed the physical exam. I agree with the documented assessment and plan. Progress 10:00 MARCO FRANCOIS MD, RESIDENT Dec 17, 2022 19:23 MCIHELLE MARTIN MD Dec 18, 2022 10:10
[2022-12-17 20:45] VITALS: BP 114/79
--- NOTE | 2022-12-17 20:55 | Tele-ICU Consult ---
History of Present Illness History of Present Illness Date Seen by Provider: Dec 17, 2022 Time Seen by Provider: 20:49 History of Present Illness eICU Critical Care Consult 42 yo M came to ED with cc of CP, Has Hx of CHF, DM2, COPD, substance abuse- amphetamine, quit smoking 1 week. CXR shows enlarged heart and enlarged pulm arteries. BNP up at 881, troponin negative WBC 11k, Hb 14.9, Covid and flu serologies are negative. Renal and liver function are normal, EKG shows VEDA, T wave inversion in lateral leads. At home takes Primitivo and sprionolactone which ran out of was incarderated. Had caridac cath in 2021 which showed LVEF of 15 to 20%, ED note mentions pt becomes hypoxic with exertion. Started back on meds, given dose of IV Lasix, Medrol Allergies and Home Medications Allergies Coded Allergies: No Known Drug Allergies (Unverified , 02/10/12) Home Medications Aspirin 81 Mg Tablet.dr, 81 MG PO DAILY Prescribed by: FINA MASSEY on 04/14/221215 Carvedilol 3.125 Mg Tablet, 3.125 MG PO BID Prescribed by: FINA MASSEY on 04/14/221215 Carvedilol 3.125 Mg Tablet, 3.125 MG PO BID Prescribed by: LOYD REINA on 12/13/221918 Empagliflozin 10 Mg Tablet, 10 MG PO DAILY Prescribed by: FINA MASSEY on 04/14/221215 Furosemide 40 Mg Tablet, 40 MG PO DAILY Prescribed by: FINA MASSEY on 04/14/221215 Furosemide 40 Mg Tablet, 40 MG PO DAILY Prescribed by: LOYD REINA on 12/13/221918 Potassium Chloride 10 Meq Tablet.er, 10 MEQ PO DAILY Prescribed by: LOYD REINA on 12/13/221918 Sacubitril/Valsartan 24 Mg-26 Mg Tablet, 1 TAB PO Q12H Prescribed by: FINA MASSEY on 04/14/221215 Sacubitril/Valsartan 24 Mg-26 Mg Tablet, 1 TAB PO BID Prescribed by: LOYD REINA on 12/13/221918 Spironolactone 25 Mg Tablet, 25 MG PO DAILY Prescribed by: FINA MASSEY on 04/14/22 1216 Spironolactone 25 Mg Tablet, 25 MG PO DAILY Prescribed by: LOYD REINA on 12/13/22 1919 Past Medical/Social/Family Hx Patient Social History Tobacco Use?: No Substance use?: Yes Substance type: Methamphetamine, Marijuana Alcohol Use?: No Pt stated abuse/neglect: No Immunizations Up To Date First/Initial COVID19 Vaccinat: RECEIVED, UNK WHEN Second COVID19 Vaccination Lasha: RECEIVED, UNK WHEN Tetanus Booster (TDap): Less Than 5 Years Current Status Advance Directives: No Primary Language: Par[place]ayan Preferred Spoken Language: [place]ayan Family Medical History Family Hx: Breast cancer and onset, heart problems, hypertension, stomach cancer in paternal grandmother Review of Systems Constitutional: see HPI EENTM: see HPI Respiratory: see HPI Cardiovascular: see HPI Gastrointestinal: see HPI Genitourinary: see HPI Musculoskeletal: see HPI Skin: see HPI Psychiatric/Neurological: See HPI Focused Exam Height, Weight, BMI Height: 5'7.00" Weight: 200lbs. oz. 90.831706fk; 29.00 BMI Method:Stated Exam Exam Patient acknowledged, consented, and participated in this virtual visit which was conducted using real time audio/video Vital Signs Date Time Temp Pulse Resp B/P (MAP) Pulse Ox O2 Delivery O2 Flow Rate FiO2 12/17/22 20:40 104 12/17/22 19:52 100 16 92/63 96 Room Air 0 0 12/17/22 17:35 94 Room Air 0 12/17/22 17:18 36.1 115 16 109/87 (94) 96 12/17/22 17:18 Room Air Height & Weight Height: 5'7.00" Weight: 200lbs. oz. 90.277323uz; 29.00 BMI Method:Stated General Appearance: No Apparent Distress, WD/WN HEENT: PERRL/EOMI, TMs Normal, Normal ENT Inspection, Pharynx Normal Neck: Full Range of Motion, Normal Inspection, Non Tender, Supple Respiratory: Chest Non Tender, Lungs Clear, Normal Breath Sounds, No Accessory Muscle Use, No Respiratory Distress, Rales, Other (crackles in lower lobes) Cardiovascular: Regular Rate, Rhythm, No Edema, No Gallop, No JVD, No Murmur Capillary Refill: Less Than 3 Seconds Gastrointestinal: normal bowel sounds, non tender, soft Extremity: Normal Capillary Refill, Normal Inspection, Normal Range of Motion, Non Tender, No Pedal Edema Neurologic/Psychiatric: Alert, Oriented x3, No Motor/Sensory Deficits, Normal Mood/Affect, 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
[2022-12-17] MEDS: carvediloL 3.125 MG TABLET PO SCH (22:33)
[2022-12-17] MEDS: SACUBITRIL/VALSARTAN 24/26 MG TABLET PO SCH (22:33)
[2022-12-17] MEDS: ENOXAPARIN 40 MG/0.4 ML SYRINGE SC SCH (22:33)
[2022-12-18] VITALS (7 sets, daily range): BP systolic 96–123; BP diastolic 57–90
[2022-12-18 05:23] LABS: BASOPHILS % (AUTO) 0 % (0-10); EOSINOPHILS % (AUTO) 0 % (0-10); HEMATOCRIT 45 % (40-54); HEMOGLOBIN 14.8 g/dL (13.3-17.7); LYMPHOCYTES # (AUTO) 0.8 10^3/uL (1.0-4.0); LYMPHOCYTES % (AUTO) 6 % (12-44); MEAN CORPUSCULAR HEMOGLOBIN 28 pg (25-34); MEAN CORPUSCULAR HGB CONC 33 g/dL (32-36); MEAN CORPUSCULAR VOLUME 85 fL (80-99); MEAN PLATELET VOLUME 9.9 fL (9.0-12.2); MONOCYTES # (AUTO) 0.2 10^3/uL (0.0-1.0); MONOCYTES % (AUTO) 1 % (0-12); NEUTROPHILS # (AUTO) 12.8 10^3/uL (1.8-7.8); NEUTROPHILS % (AUTO) 93 % (42-75); PLATELET COUNT 324 10^3/uL (130-400); WHITE BLOOD COUNT 13.9 10^3/uL (4.3-11.0)
[2022-12-18 05:37] LABS: ALBUMIN 3.7 GM/DL (3.2-4.5); POTASSIUM 3.7 MMOL/L (3.6-5.0)
[2022-12-18 05:38] LABS: CALCIUM 9.2 MG/DL (8.5-10.1)
[2022-12-18 05:39] LABS: TOTAL PROTEIN 7.1 GM/DL (6.4-8.2)
[2022-12-18 05:41] LABS: BILIRUBIN,TOTAL 0.6 MG/DL (0.1-1.0)
[2022-12-18 05:43] LABS: CREATININE SERUM 1.24 MG/DL (0.60-1.30)
[2022-12-18] MEDS: FUROSEMIDE 40 MG TABLET PO SCH (08:00)
[2022-12-18] MEDS: EMPAGLIFLOZIN 10 MG TABLET PO SCH (08:00)
[2022-12-18] MEDS: carvediloL 3.125 MG TABLET PO SCH ×2 (08:00→17:28)
[2022-12-18] MEDS: ASPIRIN 81 MG CHEWABLE TABLET PO SCH (08:01)
[2022-12-18] MEDS: SACUBITRIL/VALSARTAN 24/26 MG TABLET PO SCH ×2 (08:01→20:22)
[2022-12-18] MEDS: SPIRONOLACTONE 25 MG TABLET PO SCH (08:01)
--- NOTE | 2022-12-18 11:02 | Consultation-Cardiology ---
HPI-Cardiology Cardiology Consultation: Date of Consultation 12/18/22 Date of Admission Attending Physician Christopher Hoskins DO Admitting Physician Admitting Physician: Katlyn Porras MD Attending Physician: Katlyn Porras MD Consulting Physician Eufemia DIAZ MD HPI: Time Seen by a Provider: 10:58 Chief Complaint: Shortness of breath This is a 42-year-old gentleman who is well-known to Dr. Archer from previous encounters. 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 He was given a LifeVest and discharged. Unfortunately patient did not follow-up with Dr. Archer. He returned the LifeVest according to the patient. He continues to use meth. He is currently on house arrest. Presents with shortness of breath. Review of Systems-Cardiology Review of Systems Constitutional: no symptoms reported Eyes: no symptoms reported Ears/Nose/Throat: no symptoms reported Respiratory: shortness of breath Cardiovascular: no symptoms reported All Other Systems Reviewed Negative Unless Noted: Yes LWF-Eyrsbb-Iqgawd Hx Patient Social History Smoking Status: Former Smoker Alcohol Use?: No Substance type: Methamphetamine, Marijuana Pt feels they are or have been: No Immunizations Up To Date Tetanus Booster (TDap): Less than 5yrs Past Medical History PMH As described under Assessment. Family Medical History Family Medical History: The patient does not know of any family history of premature coronary artery disease in first-degree relatives. Allergies and Home Medications Allergies Coded Allergies: No Known Drug Allergies (Unverified , 02/10/12) Patient Home Medication List Home Medication List Reviewed: Yes Aspirin (Aspirin EC) 81 Mg Tablet.dr, 81 MG PO DAILY Prescribed by: FINA MASSEY on 04/14/221215 Carvedilol (Carvedilol) 3.125 Mg Tablet, 3.125 MG PO BID Prescribed by: FINA MASSEY on 04/14/221215 Carvedilol (Carvedilol) 3.125 Mg Tablet, 3.125 MG PO BID Prescribed by: LOYD REINA on 12/13/221918 Empagliflozin (Jardiance) 10 Mg Tablet, 10 MG PO DAILY Prescribed by: FINA MASSEY on 04/14/221215 Furosemide (Lasix) 40 Mg Tablet, 40 MG PO DAILY Prescribed by: FINA MASSEY on 04/14/221215 Furosemide (Lasix) 40 Mg Tablet, 40 MG PO DAILY Prescribed by: LOYD REINA on 12/13/221918 Potassium Chloride (K-Tab ER) 10 Meq Tablet.er, 10 MEQ PO DAILY Prescribed by: LOYD REINA on 12/13/221918 Sacubitril/Valsartan (Entresto 24 mg-26 mg Tablet) 24 Mg-26 Mg Tablet, 1 TAB PO Q12H Prescribed by: FINA MASSEY on 04/14/221215 Sacubitril/Valsartan (Entresto 24 mg-26 mg Tablet) 24 Mg-26 Mg Tablet, 1 TAB PO BID Prescribed by: LOYD REINA on 12/13/221918 Spironolactone (Spironolactone) 25 Mg Tablet, 25 MG PO DAILY Prescribed by: FINA MASSEY on 04/14/221215 Spironolactone (Spironolactone) 25 Mg Tablet, 25 MG PO DAILY Prescribed by: LOYD REINA on 12/13/221918 Exam Vital Signs Vital Signs Date Time Temp Pulse Resp B/P (MAP) Pulse Ox O2 Delivery O2 Flow Rate FiO2 12/18/22 09:02 Nasal Cannula 1.00 12/18/22 07:28 36.1 85 16 96/63 (74) 95 Physical Exam Constitutional exam: No respiratory distress. Chest: Clear to auscultation bilaterally. CVS: Regular rate and rhythm. No significant lower extremity swelling Labs Laboratory Tests Test 12/17/22 17:10 12/17/22 17:20 12/18/22 04:55 Range/Units White Blood Count 11.0 13.9 H 4.3-11.0 10^3/uL Red Blood Count 5.39 5.30 4.30-5.52 10^6/uL Hemoglobin 14.9 14.8 13.3-17.7 g/dL Hematocrit 47 45 40-54 % Mean Corpuscular Volume 87 85 80-99 fL Mean Corpuscular Hemoglobin 28 28 25-34 pg Mean Corpuscular Hemoglobin Concent 32 33 32-36 g/dL Red Cell Distribution Width 13.7 13.3 10.0-14.5 % Platelet Count 348 324 130-400 10^3/uL Mean Platelet Volume 9.6 9.9 9.0-12.2 fL Immature Granulocyte % (Auto) 0 1 % Neutrophils (%) (Auto) 76 H 93 H 42-75 % Lymphocytes (%) (Auto) 15 6 L 12-44 % Monocytes (%) (Auto) 5 1 0-12 % Eosinophils (%) (Auto) 4 0 0-10 % Basophils (%) (Auto) 0 0 0-10 % Neutrophils # (Auto) 8.3 H 12.8 H 1.8-7.8 10^3/uL Lymphocytes # (Auto) 1.7 0.8 L 1.0-4.0 10^3/uL Monocytes # (Auto) 0.5 0.2 0.0-1.0 10^3/uL Eosinophils # (Auto) 0.4 H 0.0 0.0-0.3 10^3/uL Basophils # (Auto) 0.0 0.0 0.0-0.1 10^3/uL Immature Granulocyte # (Auto) 0.0 0.1 0.0-0.1 10^3/uL Prothrombin Time 14.2 12.2-14.7 SEC INR Comment 1.1 0.8-1.4 Activated Partial Thromboplast Time 27 24-35 SEC D-Dimer 0.35 0.00-0.49 UG/ML Sodium Level 139 138 135-145 MMOL/L Potassium Level 3.9 3.7 3.6-5.0 MMOL/L Chloride Level 107 107 98-107 MMOL/L Carbon Dioxide Level 22 22 21-32 MMOL/L Anion Gap 10 9 5-14 MMOL/L Blood Urea Nitrogen 15 25 H 7-18 MG/DL Creatinine 0.95 1.24 0.60-1.30 MG/DL Estimat Glomerular Filtration Rate 102 74 BUN/Creatinine Ratio 16 20 Glucose Level 176 H 191 H 70-105 MG/DL Calcium Level 9.1 9.2 8.5-10.1 MG/DL Corrected Calcium 9.2 9.4 8.5-10.1 MG/DL Magnesium Level 1.9 1.6-2.4 MG/DL Total Bilirubin 0.5 0.6 0.1-1.0 MG/DL Aspartate Amino Transf (AST/SGOT) 23 21 5-34 U/L Alanine Aminotransferase (ALT/SGPT) 25 23 0-55 U/L Alkaline Phosphatase 66 58 40-136 U/L Myoglobin 29.0 10.0-92.0 NG/ML Troponin I < 0.028 <0.028 NG/ML B-Type Natriuretic Peptide 881.0 H <100.0 PG/ML Total Protein 7.4 7.1 6.4-8.2 GM/DL Albumin 3.9 3.7 3.2-4.5 GM/DL Lipase 25 8-78 U/L Influenza Type A (RT-PCR) Not Detected Not Detecte Influenza Type B (RT-PCR) Not Detected Not Detecte SARS-CoV-2 RNA (RT-PCR) Not Detected Not Detecte Triglycerides Level 72 <150 MG/DL Cholesterol Level 149 < 200 MG/DL LDL Cholesterol Direct 131 H 1-129 MG/DL VLDL Cholesterol 14 5-40 MG/DL HDL Cholesterol 28 L 40-60 MG/DL ECG Impression ECG Initial ECG Rhythm: Normal Sinus A/P-Cardiology Assessment/Admission Diagnosis Dilated nonischemic cardiomyopathy, Active meth use Plan Dilated nonischemic cardiomyopathy. LVEF of less than 20%. Still using meth actively. According to the patient last use was a week ago. He was previously on LifeVest. Patient needs to be on goal-directed medical therapy and abstinent to meth for at least 3 months before he will be considered for a defibrillator. Patient will follow-up with Dr. Escobar. Not in any significant heart failure. Eufemia DIAZ MD Dec 18, 2022 11:01
[2022-12-18] MEDS: ENOXAPARIN 40 MG/0.4 ML SYRINGE SC SCH (20:22)
[2022-12-19 03:49] VITALS: BP 132/83
[2022-12-19 04:55] LABS: BASOPHILS # (AUTO) 0.1 10^3/uL (0.0-0.1); BASOPHILS % (AUTO) 0 % (0-10); EOSINOPHILS # (AUTO) 0.2 10^3/uL (0.0-0.3); EOSINOPHILS % (AUTO) 1 % (0-10); HEMATOCRIT 49 % (40-54); HEMOGLOBIN 16.5 g/dL (13.3-17.7); LYMPHOCYTES # (AUTO) 4.1 10^3/uL (1.0-4.0); LYMPHOCYTES % (AUTO) 22 % (12-44); MEAN CORPUSCULAR HEMOGLOBIN 29 pg (25-34); MEAN CORPUSCULAR HGB CONC 33 g/dL (32-36); MEAN CORPUSCULAR VOLUME 86 fL (80-99); MEAN PLATELET VOLUME 10.4 fL (9.0-12.2); MONOCYTES # (AUTO) 1.2 10^3/uL (0.0-1.0); MONOCYTES % (AUTO) 7 % (0-12); NEUTROPHILS # (AUTO) 12.7 10^3/uL (1.8-7.8); NEUTROPHILS % (AUTO) 69 % (42-75); PLATELET COUNT 380 10^3/uL (130-400); WHITE BLOOD COUNT 18.4 10^3/uL (4.3-11.0)
[2022-12-19 05:22] LABS: ALBUMIN 3.6 GM/DL (3.2-4.5); POTASSIUM 3.9 MMOL/L (3.6-5.0)
[2022-12-19 05:25] LABS: TOTAL PROTEIN 7.1 GM/DL (6.4-8.2)
[2022-12-19 05:26] LABS: BILIRUBIN,TOTAL 0.3 MG/DL (0.1-1.0)
[2022-12-19 05:28] LABS: CREATININE SERUM 0.86 MG/DL (0.60-1.30)
[2022-12-19 05:39] LABS: LYMPHOCYTES % (MANUAL) 20 %; MONOCYTES % (MANUAL) 7 %; NEUTROPHILS % (MANUAL) 73 %; RBC MORPH NORMAL
[2022-12-19 07:25] VITALS: BP 119/82
[2022-12-19] MEDS: FUROSEMIDE 40 MG TABLET PO SCH (08:26)
[2022-12-19] MEDS: EMPAGLIFLOZIN 10 MG TABLET PO SCH (08:26)
[2022-12-19] MEDS: SACUBITRIL/VALSARTAN 24/26 MG TABLET PO SCH (08:26)
[2022-12-19] MEDS: carvediloL 3.125 MG TABLET PO SCH (08:26)
[2022-12-19] MEDS: SPIRONOLACTONE 25 MG TABLET PO SCH (08:26)
[2022-12-19] MEDS: ASPIRIN 81 MG CHEWABLE TABLET PO SCH (08:26)
--- NOTE | 2022-12-19 09:15 | Cardiology Progress Note ---
Subjective Date Seen by Provider: Dec 19, 2022 Time Seen by Provider: 08:15 Subjective/Events-last exam Patient sitting up in bed, reports improvement of dyspnea. Denies any chest pain. Objective-Cardiology Exam Last Set of Vital Signs Vital Signs 12/19/22 12/19/22 12/19/22 07:25 07:30 08:00 Temp 36.2 Pulse 122 Resp 17 B/P (MAP) 119/82 (94) Pulse Ox 98 O2 Delivery Nasal Cannula O2 Flow Rate 2.00 I&O Intake and Output 12/18/22 23:59 Intake Total 1630 ml Output Total 2050 ml Balance -420 ml Intake Oral 1630 ml Output Urine Total 2050 ml # Voids 1 General: Alert, Oriented X3 HEENT: Atraumatic, PERRLA Neck: Supple Lungs: Clear to Auscultation, Normal Air Movement Heart: Regular Rate, Normal S1, Normal S2 Abdomen: Normal Bowel Sounds, Soft Extremities: Other (trace edema BLE) Skin: No Rashes, No Significant Lesion Results Lab Laboratory Tests 12/19/22 04:36 A/P-Cardiology Admission Diagnosis Dyspnea CHF Nonobstructive CAD HTN Assessment/Plan Acute on chronic CHF, dilated cardiomyopathy. Echo on 04/14/22: LVEF 15-20%, mod MR, mild enlargement of LA. Had LifeVest in past, patient turned it in. Repeat echo done 12/18/22 showing ejection fraction 15- 20%. Dilated cardiomyopathy Patient reports he was out of his meds approx 1 week prior to hospitalization. Restarted on Coreg, Entresto, Jardiance, Spirinolactone and Lasix. Okay for discharge from cardiology standpoint, follow-up with Dr. Archer in 1 to 2 weeks Nonobstructive CAD [facility] done 03/24/[address] Gonzalez: Low systemic blood pressure with normal left ventricular end-diastolic pressure. Angiographically normal-appearing coronary arteries in a right dominant system but with diffusely slow flow consistent with a low output state. HTN, controlled, continue to monitor. Methamphetamine abuse, educated on avoiding illicit drugs Patient was educated about compliance with medications Supervisory-Addendum Brief Supervisory Addendum Participated in pt care: history, MDM, physical Personally performed: exam, history, MDM Care discussed with: ADARSH Results interpretation: Verified all documentation Notes: Patient was seen and evaluated with Migdalia, examination performed, management plan was discussed, agree with the current scribed note, I made few changes to the note using Italic font Patient was seen at bedside laying down comfortably, feeling better Discussed with Dr. Campos regarding his discharge, he can have a LifeVest scheduled for fitting as an outpatient Educated about compliance with medication and avoiding illicit drugs MIGDALIA KING PA-C Dec 19, 2022 09:15 ADILENE GARCIA MD Dec 19, 2022 11:01
[2022-12-19] MEDS ORDERED: POTA-177 PO ×2 (10:19)
[2022-12-19] MEDS ORDERED: CARV3.122 PO ×3 (10:19→10:46)
[2022-12-19] MEDS ORDERED: LISI2.5T13 PO ×2 (10:20)
[2022-12-19] MEDS ORDERED: SPIR25TA5 PO ×3 (10:20→10:46)
[2022-12-19] MEDS ORDERED: FURO40TA4 PO ×3 (10:20→10:46)
[2022-12-19] MEDS ORDERED: EMPA10TA PO ×3 (10:21→10:46)
[2022-12-19] MEDS ORDERED: ASPI-1238 PO ×3 (10:21→10:46)
[2022-12-19] MEDS ORDERED: SACU1TAB2 PO ×2 (10:46)
--- NOTE | 2022-12-19 10:47 | Progress Note ---
[place] WHYTE 12/19/22 1047: Progress Note Naresh Mayer is a 42 year old male who presented himself to the ED on 12/17 with SOB for the previous 2 days. Pt has been experiencing dyspnea on exertion. History of cigarette smoking and meth consumption was admitted by the pt. Denied having any chest pain or cough. EKG showed Sinus tachycardia, left atrial lodgment, moderate T wave normality in the lateral leads, at 105 bpm, QRS duration 109 MS, QTc 440 MS. Chest xray showed Stable mild cardiomegaly. Tropnonin levels were <0.028. BNP was 881. Cardiology was consulted on 12/[address] Ponce dx the patient with dilated nonischemic cardiomyopathy and active meth use. Dr. Ponce explained to the pt that he needs to be abstinent to meth for at least 3 months before he will be considered for a defibrillator. A follow up will be made with Dr. Escobar. Pt was seen today and has not been having any SOB or chest pain. Pt is feeling good and denies having any pain. Pt is going to be discharged today. KARRIE MASSEY DO 12/20/22 0442: Supervisory-Addendum Brief Verification & Attestation Participated in pt care: history, MDM, physical Personally performed: exam, history, MDM, supervision of care Care discussed with: Medical Student Procedures: n/a Results interpretation: Verified all documentation Verification and Attestation of Medical Student E/M Service A medical student performed and documented this service in my presence. I reviewed and verified all information documented by the medical student and made modifications to such information, when appropriate. I personally performed the physical exam and medical decision making. Karrie Massey, Dec 20, 2022,04:42 [place] WH[facility] Dec 19, 2022 10:47 KARRIE MASSEY DO Dec 20, 2022 04:42
--- NOTE | 2022-12-19 10:47 | Discharge Summary ---
Discharge Summary Hospital Course Was the Problem List Reviewed?: Yes Problems/Dx: (1) Acute HFrEF (heart failure with reduced ejection fraction) Status: Acute (2) Methamphetamine abuse Status: Acute Hospital Course Date of Admission: Dec 17, 2022 at 20:05 Admission Diagnosis : Family Physician/Provider: Christopher Hoskins DO Date of Discharge: 12/19/22 Discharge Diagnosis: [ ] Hospital Course: Uneventful course after he was admitted for AECHF and EF 15%. CHF etioogy polysubstance abuse. Meth + UDS. Overall he remained stable and Cardiology recom mended restarting home meds and Lifevest will be arranged at [place]. Labs and Pending Lab Test: Laboratory Tests 12/19/22 04:36: White Blood Count 18.4H, Red Blood Count 5.74H, Hemoglobin 16.5, Hematocrit 49, Mean Corpuscular Volume 86, Mean Corpuscular Hemoglobin 29, Mean Corpuscular Hemoglobin Concent 33, Red Cell Distribution Width 13.9, Platelet Count 380, Mean Platelet Volume 10.4, Immature Granulocyte % (Auto) 1, Neutrophils (%) (Auto) 69, Lymphocytes (%) (Auto) 22, Monocytes (%) (Auto) 7, Eosinophils (%) (Auto) 1, Basophils (%) (Auto) 0, Neutrophils # (Auto) 12.7H, Lymphocytes # (Auto) 4.1H, Monocytes # (Auto) 1.2H, Eosinophils # (Auto) 0.2, Basophils # (Auto) 0.1, Immature Granulocyte # (Auto) 0.1, Neutrophils % (Manual) 73, Lymphocytes % (Manual) 20, Monocytes % (Manual) 7, Blood Morphology Comment NORMAL, Sodium Level 140, Potassium Level 3.9, Chloride Level 109H, Carbon Dioxide Level 20L, Anion Gap 11, Blood Urea Nitrogen 18, Creatinine 0.86, Estimat Glomerular Filtration Rate 111, BUN/Creatinine Ratio 21, Glucose Level 113H, Calcium Level 9.0, Corrected Calcium 9.3, Total Bilirubin 0.3, Aspartate Amino Transf (AST/SGOT) 28, Alanine Aminotransferase (ALT/SGPT) 21, Alkaline Phosphatase 73, Total Protein 7.1, Albumin 3.6 Home Meds Active Reported Aspirin EC (Aspirin) 81 Mg Tablet.dr 81 Mg PO DAILY Jardiance (Empagliflozin) 10 Mg Tablet 10 Mg PO DAILY Lisinopril 2.5 Mg Tablet 2.5 Mg PO DAILY Furosemide 40 Mg Tablet 40 Mg PO DAILY Spironolactone 25 Mg Tablet 25 Mg PO DAILY Carvedilol 3.125 Mg Tablet 3.125 Mg PO BID Potassium Chloride 10 Meq Tab.er.prt 10 Meq PO DAILY Assessment/Pt Instructions PCP for lifevest Discharge Planning: <30 minutes discharge planning Discharge Instructions Discharge Diet: Low Sodium Diet Discharge Physical Examination Vital Signs Vital Signs Date Time Temp Pulse Resp B/P (MAP) Pulse Ox O2 Delivery O2 Flow Rate FiO2 12/19/22 08:00 Nasal Cannula 2.00 12/19/22 07:30 122 12/19/22 07:25 36.2 17 119/82 (94) 98 General Appearance: No Apparent Distress, WD/WN Allergies: Coded Allergies: No Known Drug Allergies (Unverified , 02/10/12) Discharge Summary Date of Admission Dec 17, 2022 at 20:05 Date of Discharge Discharge Date: Dec 19, 2022 Clinical Quality Measures Smoking Cessation Counseling: Counseling-Symptomatic: 3-10 Minutes FINA MASSEY DO Dec 19, 2022 10:46
[2022-12-19 11:27] VITALS: BP 121/80
== END 2022-12-19 14:15 | disposition home or self-care (01) ==
LOC: EDUNIT# 16:58 → ER 17:01 → ICU 20:05 → UNDOADMOB 20:05 → ICU 20:50 → 4TH 12-18 12:56 → UNDODISOB 12-19 14:15
PROVIDERS: ADMIT Family Medicine; ATTEND Internal Medicine
DX: I11.0 Hypertensive heart disease with heart failure (principal); I50.23 Acute on chronic systolic (congestive) heart failure; I42.0 Dilated cardiomyopathy; I42.8 Other cardiomyopathies; I25.10 Atherosclerotic heart disease of native coronary artery without angina pectoris; R09.02 Hypoxemia; F19.10 Other psychoactive substance abuse, uncomplicated; Z79.899 Other long term (current) drug therapy; Z79.82 Long term (current) use of aspirin; Z87.891 Personal history of nicotine dependence
CPT/HCPCS: 71045; 80053 ×3; 80061; 83690; 83735; 83874; 83880; 84484; 85007; 85025 ×2; 85027; 85379; 85610; 85730; 87636; 93005; 93041; 94640; 96372 ×2; 96374; 96375; 99284; C8929; G0378 ×2; 36415; 93306

== ENCOUNTER 2022-12-20 02:40 | Emergency (ER) | payer OTHER ==
[~2022-12-20] VITALS: Ht 170.2 cm; Wt 86.2 kg
[~2022-12-20 02:40] MED LIST changes: +LISI2.5T13 PO; +POTA-177 PO
--- NOTE | 2022-12-20 03:12 | ED Respiratory ---
General Chief Complaint: Respiratory Problems Stated Complaint: SOB Source: patient Exam Limitations: no limitations History of Present Illness Date Seen by Provider: Dec 20, 2022 Time Seen by Provider: 03:04 Initial Comments Jitendra is a 42-year-old male who presents to the emergency department with a chief complaint of shortness of breath most significant when he lays down to go to bed at night. He has a history of severe dilated cardiomyopathy. He was discharged from the hospital on the afternoon of 12-19-2022. He has been chronically noncompliant with his cardiac follow-up and was admitted for acute exacerbation of his congestive heart failure. He was scheduled to follow-up with cardiology for a LifeVest due to an ejection fraction of 15 to 20%. He continues to smoke and use methamphetamine. He states he lives at home with his father who smokes heavily in the home. He thinks that his shortness of breath is related to that. He does not have to use inhalers or breathing treatments at home. He denies swelling in his legs. No fevers or chills, no upper respiratory congestion. He states the shortness of breath is worse when he lays in bed. He denies a history of gastroesophageal reflux disease. Denies chest pain at home this evening. Appears very comfortable sitting at the bedside. Room air saturations 97% with no increased work of breathing or distress. He does appear slightly anxious. Timing/Duration: this evening Severity: moderate Prior Episodes/Possible Cause: occasional episodes Modifying Factors: Worse With Lying Down Associated Symptoms: No chest pain/soreness; cough (mild); No nasal congestion; shortness of breath; No wheezing Allergies and Home Medications Allergies Coded Allergies: No Known Drug Allergies (Unverified , 02/10/12) Patient Home Medication List Home Medication List Reviewed: Yes Aspirin (Aspirin EC) 81 Mg Tablet.dr, 81 MG PO DAILY Prescribed by: FINA MASSEY on 12/19/22 104 Carvedilol (Carvedilol) 3.125 Mg Tablet, 3.125 MG PO BID Prescribed by: FINA MASSEY on 12/19/22 104 Empagliflozin (Jardiance) 10 Mg Tablet, 10 MG PO DAILY Prescribed by: FINA MASSEY on 12/19/22 104 Furosemide (Furosemide) 40 Mg Tablet, 40 MG PO DAILY Prescribed by: FINA MASSEY on 12/19/22 1046 Sacubitril/Valsartan (Entresto 24 mg-26 mg Tablet) 24 Mg-26 Mg Tablet, 1 TAB PO BID Prescribed by: FINA MASSEY on 12/19/22 1046 Spironolactone (Spironolactone) 25 Mg Tablet, 25 MG PO DAILY Prescribed by: FINA MASSEY on 12/19/22 1046 Discontinued Medications Lisinopril (Lisinopril) 2.5 Mg Tablet, 2.5 MG PO DAILY, (Reported) Entered as Reported by: FABY PINEDA on 12/19/22 1020 Potassium Chloride (Potassium Chloride) 10 Meq Tab.er.prt, 10 MEQ PO DAILY, (Reported) Entered as Reported by: FABY PINEDA on 12/19/22 1019 Review of Systems Review of Systems Constitutional: see HPI EENTM: no symptoms reported Respiratory: cough, orthopnea, short of breath Cardiovascular: no symptoms reported Gastrointestinal: no symptoms reported Musculoskeletal: no symptoms reported Skin: no symptoms reported Psychiatric/Neurological: No Symptoms Reported Past [id number]-Yxcunj-Guzcao Hx Immunizations Up To Date Tetanus Booster (TDap): Less than 5yrs First/Initial COVID19 Vaccinat: RECEIVED, UNK WHEN Second COVID19 Vaccination Lasha: RECEIVED, UNK WHEN Third COVID19 Vaccination Date: RECEIVED, UNK WHEN Seasonal Allergies Seasonal Allergies: No Past Medical History Surgery/Hospitalization HX: dm, chf Surgeries: Yes Cardiac Respiratory: No Cardiac: Yes (Cardiomyopathy and congestive heart failure) Cardiomyopathy, Hypertension Neurological: No Reproductive Disorders: No Genitourinary: No Gastrointestinal: Yes Gastroesophageal Reflux Musculoskeletal: No Endocrine: No Cancer: No Psychosocial: No Integumentary: Yes (MRSA) Blood Disorders: No Family Medical History Cancer Breast cancer and onset, heart problems, hypertension, stomach cancer in paternal grandmother Physical Exam Vital Signs - First Documented 12/20/22 02:48 Temp 36.1 Pulse 116 Resp 20 B/P (MAP) 114/98 (103) Pulse Ox 97 O2 Delivery Room Air Capillary Refill : Height: 5'7.00" Weight: 200lbs. oz. 90.237150ss; 29.34 BMI Method:Stated General Appearance: WD/WN, no apparent distress HEENT: PERRL/EOMI, pharynx normal Neck: supple Respiratory: lungs clear, normal breath sounds, no respiratory distress, no accessory muscle use Cardiovascular: regular rate, rhythm, tachycardia (118 bpm) Extremities: normal range of motion, normal inspection, no pedal edema Neurologic/Psychiatric: alert, normal mood/affect, oriented x 3 Skin: normal color, warm/dry Progress/Results/Core Measures Suspected Sepsis SIRS Temperature: Pulse: Respiratory Rate: Blood Pressure / Mean: Results/Orders Vital Signs/I&O 12/20/22 12/20/22 12/20/22 02:48 02:48 03:49 Temp 36.1 Pulse 116 108 Resp 20 18 B/P (MAP) 114/98 (103) 116/85 Pulse Ox 97 97 O2 Delivery Room Air Room Air Room Air Capillary Refill : Progress Note : Time: 03:46 Progress Note Patient seen and evaluated by me. Evaluation today includes history and physical exam. Pertinent physical exam findings well-developed well-nourished 42-year-old male in no acute distress. Stable vital signs, not tachypneic, not hypoxic. Room air sats 97 to 98%. He is not tachycardic. He is not febrile. Heart is regular. Lungs are clear without wheezes, rales or rhonchi. Abdomen is soft and nontender. He has no lower extremity edema. Differential diagnosis includes exacerbation of congestive heart failure, COPD exacerbation, anxiety Patient's exam is completely normal. He has no concerning findings on exam for acute congestive failure. He is not wheezing or in any respiratory distress consistent with COPD exacerbation. We spoke about trying to decrease his exposure to tobacco smoke at home and I encouraged him strongly to quit smoking himself. He is reassured that he has no findings concerning for a need to be readmitted to the hospital. I have advised him to discontinue his methamphetamine and to keep his follow-up appointments as scheduled with his specialists. As he is up and moving around in the room he does not have any decrease in his oxygen saturations. Consideration for labs and imaging however history and physical do not support the need at this time. His last chest x-ray from 3 or 4 days ago was reviewed by me and showed no evidence of failure. He did have a leukocytosis of about 18,000 just prior to discharge however he is not complaining of fever, productive cough or any other symptoms of illness. Return precautions are provided to JITENDRA in both verbal and written format. He does appear little anxious but is at the same time comfortable with discharge to home with reassurance. All questions are sought and answered. Departure Impression Primary Impression: Dyspnea Qualified Codes: R06.01 - Orthopnea Additional Impression: history of dilated cardomyopathy Disposition: HOME, SELF-CARE Condition: Stable Departure-Patient Inst. Decision time for Depature: 03:45 Referrals: BETH GIL DO (PCP/Family) Primary Care Physician Patient Instructions: Dilated cardiomyopathy Add. Discharge Instructions: Please keep your follow-up appointment with Dr. Escobar in 1 to 2 weeks. Continue your daily medications as prescribed. Please try and quit smoking if you can. You may need to prop up on 2 or 3 pillows at night to sleep to help with the shortness of breath. If you notice increased swelling in your legs with worsening shortness of breath please return to the emergency department for reevaluation. Copy Copies To 1: BETH GIL KATHRYN M MD Dec 20, 2022 03:12
[2022-12-20 03:49] VITALS: BP 116/85
== END 2022-12-20 03:49 | disposition home or self-care (01) ==
LOC: EDUNIT# 02:40 → ER 02:43
DX: R06.02 Shortness of breath (principal); Z86.79 Personal history of other diseases of the circulatory system

== ENCOUNTER 2022-12-31 05:45 | Emergency (ER) | payer SELFPAY ==
[~2022-12-31] VITALS: Ht 170 cm; Wt 86.2 kg
--- NOTE | 2022-12-31 06:12 | ED Respiratory ---
General Chief Complaint: Respiratory Problems Stated Complaint: SOB Nursing Triage Note: REPORTS WAKING UP SOA AT 0530. HX CHF. Source: patient Exam Limitations: no limitations History of Present Illness Date Seen by Provider: Dec 31, 2022 Time Seen by Provider: 06:12 Initial Comments Patient is a 42-year-old male with a history of dilated cardiomyopathy who presents to the emergency room with a chief complaint of shortness of breath. P atient states that he woke up around 530 extremely short of breath. He states that it is not uncommon for him to feel short of breath when he lays down. He has had recent admission within the last month for exacerbation of his congestive failure. He is having a difficult time being able to afford cardiac medications, specifically his Entresto. He has been taking his carvedilol, Lasix and spironolactone as well as baby aspirin daily. He had a little chest discomfort this morning when he woke up as well. Denies fevers, chills, productive cough. No swelling in his lower extremities. He states he has not used methamphetamine since his last hospitalization. He does not smoke. Is trying hard to avoid excess salt in his food. Urinating normally, is not on any mental health medications for anxiety, has not seen [facility]. Does appear a little labored in his speech however room air oxygen saturations are 97%. He is a little tachypneic. Heart rate is tachycardic at 112. Blood pressure is reassuring at 118/88. He is afebrile. Timing/Duration: just prior to arrival Severity: moderate Prior Episodes/Possible Cause: frequent episodes Associated Symptoms: chest pain/soreness (Discomfort this morning, brief), shortness of breath Allergies and Home Medications Allergies Coded Allergies: No Known Drug Allergies (Unverified , 02/10/12) Patient Home Medication List Home Medication List Reviewed: Yes Aspirin (Aspirin EC) 81 Mg Tablet., 81 MG PO DAILY Prescribed by: FINA MASSEY on 12/19/22 104 Carvedilol (Carvedilol) 3.125 Mg Tablet, 3.125 MG PO BID Prescribed by: FINA MASSEY on 12/19/22 104 Empagliflozin (Jardiance) 10 Mg Tablet, 10 MG PO DAILY Prescribed by: FINA MASSEY on 12/19/22 1046 Furosemide (Furosemide) 40 Mg Tablet, 40 MG PO DAILY Prescribed by: FINA MASSEY on 12/19/22 1046 Sacubitril/Valsartan (Entresto 24 mg-26 mg Tablet) 24 Mg-26 Mg Tablet, 1 TAB PO BID Prescribed by: FINA MASSEY on 12/19/22 1046 Spironolactone (Spironolactone) 25 Mg Tablet, 25 MG PO DAILY Prescribed by: FINA MASSEY on 12/19/22 1046 Review of Systems Review of Systems Constitutional: see HPI EENTM: no symptoms reported Respiratory: short of breath Cardiovascular: chest pain (mild chest discomfort) Gastrointestinal: no symptoms reported Genitourinary: no symptoms reported Skin: no symptoms reported Past Nwvkamt-Fsjbtd-Zhuyja Hx Patient Social History Tobacco Use?: Yes Substance use?: Yes Substance type: Methamphetamine Alcohol Use?: No Pt feels they are or have been: No Immunizations Up To Date Tetanus Booster (TDap): Less than 5yrs First/Initial COVID19 Vaccinat: RECEIVED, UNK WHEN Second COVID19 Vaccination Lasha: RECEIVED, UNK WHEN Third COVID19 Vaccination Date: RECEIVED, UNK WHEN Seasonal Allergies Seasonal Allergies: No Past Medical History Surgery/Hospitalization HX: DM, CHF, HTN, HEART CATH Surgeries: Yes Cardiac Respiratory: No Cardiac: Yes (Cardiomyopathy and congestive heart failure) Cardiomyopathy, Hypertension Neurological: No Reproductive Disorders: No Genitourinary: No Gastrointestinal: Yes Gastroesophageal Reflux Musculoskeletal: No Endocrine: No Cancer: No Psychosocial: No Integumentary: Yes (MRSA) Blood Disorders: No Family Medical History Cancer Breast cancer and onset, heart problems, hypertension, stomach cancer in paternal grandmother Physical Exam Vital Signs - First Documented 12/31/22 05:50 Temp 36.3 Pulse 119 Resp 16 B/P (MAP) 114/83 (93) Pulse Ox 100 O2 Delivery Room Air Capillary Refill : Less Than 3 Seconds Height: 5'7.00" Weight: 200lbs. oz. 90.158449ng; 29.00 BMI Method:Stated General Appearance: WD/WN, no apparent distress Eyes: Bilateral Eye Normal Inspection HEENT: PERRL/EOMI Neck: normal inspection Respiratory: lungs clear, normal breath sounds, no respiratory distress, no accessory muscle use, other (slight tachypnea, maildly labored breathing) Cardiovascular: regular rate, rhythm, tachycardia (112), systolic murmur (heard best at apex, soft 2-3/6 RENATA), other (2+ radial pulses) Gastrointestinal: normal bowel sounds, non tender, soft Extremities: normal range of motion, non-tender, normal inspection, no pedal edema, other (ankle monitor left ankle) Neurologic/Psychiatric: alert, normal mood/affect, oriented x 3 Skin: normal color, warm/dry Progress/Results/Core Measures Suspected Sepsis SIRS Temperature: Pulse: 119 Respiratory Rate: 16 Laboratory Tests 12/31/22 06:28: White Blood Count 14.3H Blood Pressure 114 /83 Mean: 93 Laboratory Tests 12/31/22 06:28: Creatinine 0.87, INR Comment 1.1, Platelet Count 348, Total Bilirubin 0.5 Results/Orders Lab Results Laboratory Tests Test 12/31/22 06:28 Range/Units White Blood Count 14.3 H 4.3-11.0 10^3/uL Red Blood Count 5.48 4.30-5.52 10^6/uL Hemoglobin 15.5 13.3-17.7 g/dL Hematocrit 48 40-54 % Mean Corpuscular Volume 87 80-99 fL Mean Corpuscular Hemoglobin 28 25-34 pg Mean Corpuscular Hemoglobin Concent 33 32-36 g/dL Red Cell Distribution Width 14.1 10.0-14.5 % Platelet Count 348 130-400 10^3/uL Mean Platelet Volume 9.8 9.0-12.2 fL Immature Granulocyte % (Auto) 0 % Neutrophils (%) (Auto) 72 42-75 % Lymphocytes (%) (Auto) 17 12-44 % Monocytes (%) (Auto) 7 0-12 % Eosinophils (%) (Auto) 3 0-10 % Basophils (%) (Auto) 1 0-10 % Neutrophils # (Auto) 10.3 H 1.8-7.8 10^3/uL Lymphocytes # (Auto) 2.4 1.0-4.0 10^3/uL Monocytes # (Auto) 1.1 H 0.0-1.0 10^3/uL Eosinophils # (Auto) 0.5 H 0.0-0.3 10^3/uL Basophils # (Auto) 0.1 0.0-0.1 10^3/uL Immature Granulocyte # (Auto) 0.1 0.0-0.1 10^3/uL Neutrophils % (Manual) 75 % Lymphocytes % (Manual) 12 % Monocytes % (Manual) 4 % Eosinophils % (Manual) 4 % Basophils % (Manual) 1 % Reactive Lymphocytes 4 % Blood Morphology Comment NORMAL Prothrombin Time 14.1 12.2-14.7 SEC INR Comment 1.1 0.8-1.4 Activated Partial Thromboplast Time 29 24-35 SEC D-Dimer < 0.27 0.00-0.49 UG/ML Sodium Level 142 135-145 MMOL/L Potassium Level 4.0 3.6-5.0 MMOL/L Chloride Level 109 H 98-107 MMOL/L Carbon Dioxide Level 22 21-32 MMOL/L Anion Gap 11 5-14 MMOL/L Blood Urea Nitrogen 15 7-18 MG/DL Creatinine 0.87 0.60-1.30 MG/DL Estimat Glomerular Filtration Rate 110 BUN/Creatinine Ratio 17 Glucose Level 98 70-105 MG/DL Calcium Level 9.3 8.5-10.1 MG/DL Corrected Calcium 9.3 8.5-10.1 MG/DL Magnesium Level 2.0 1.6-2.4 MG/DL Total Bilirubin 0.5 0.1-1.0 MG/DL Aspartate Amino Transf (AST/SGOT) 19 5-34 U/L Alanine Aminotransferase (ALT/SGPT) 21 0-55 U/L Alkaline Phosphatase 63 40-136 U/L Troponin I < 0.028 <0.028 NG/ML B-Type Natriuretic Peptide 851.7 H <100.0 PG/ML Total Protein 7.5 6.4-8.2 GM/DL Albumin 4.0 3.2-4.5 GM/DL My Orders Orders - LOYD REINA MD Cbc And Automated Diff (12/31/22 06:19) Magnesium (12/31/22 06:19) Chest 1 View, Ap/Pa Only (12/31/22 06:19) Ekg Tracing (12/31/22 06:19) Comprehensive Metabolic Panel (12/31/22 06:19) Protime With Inr (12/31/22 06:19) Partial Thromboplastin Time (12/31/22 06:19) O2 (12/31/22 06:19) Monitor-Rhythm Ecg Trace Only (12/31/22 06:19) Ed Iv/Invasive Line Start (12/31/22 06:19) Bnp Yadira (12/31/22 06:19) Troponin I Villalba (12/31/22 06:19) Hydroxyzine Oral (Hydroxyzine Oral) (12/31/22 06:30) Manual Differential (12/31/22 06:28) Fibrin Degradation Products (12/31/22 07:55) Medications Given in ED Current Medications Medications Dose Ordered Sig/Arielle Route Start Time Stop Time Status Last Admin Dose Admin Hydroxyzine Pamoate 50 mg ONCE ONCE PO 12/31/22 06:30 12/31/22 06:31 DC 12/31/22 06:35 50 MG Vital Signs/I&O 12/31/22 12/31/22 12/31/22 12/31/22 05:50 05:50 07:31 08:31 Temp 36.3 Pulse 119 110 107 Resp 16 B/P (MAP) 114/83 (93) 106/86 (93) 105/81 (89) Pulse Ox 100 98 O2 Delivery Room Air Room Air Room Air Capillary Refill : Less Than 3 Seconds Blood Pressure Mean: 93 Progress Note : Time: 07:41 Progress Note Patient seen and evaluated by me. Evaluation today includes history and physical exam with "cardiac work-up" to include CBC, comprehensive metabolic panel, coags, troponin, BNP, EKG, single view chest x-ray. Pertinent physical exam findings well-developed well-nourished, pleasant 42-year-old male in no significant distress. He is a little conversationally dyspneic. He has clear lungs throughout with no evidence of increased work of breathing or distress. He has regular heart rate with soft systolic ejection murmur at the apex. No lower extremity edema. Abdomen is soft and benign. No focal neurodeficits. Differential diagnosis includes ACS, acute exacerbation of congestive heart failure, pneumonia/bronchitis, anxiety Labs, EKG and chest x-ray independently reviewed and interpreted by me. His CBC shows a mildly elevated white blood cell count without left shift, his comprehensive metabolic panel is normal. His coags are normal. His troponin is undetectable. His BNP is a little over 800 which is similar to previous, no worse. EKG shows a sinus tachycardia with left atrial enlargement. No ectopy no ST segment elevation or depression. His chest x-ray demonstrates cardiomegaly without evidence of effusion, infiltrate. Radiologist interpretation comments on new infiltrates in the guillermo bilaterally however on my comparison to previous it appears similar. The patient was treated with 50 mg of hydroxyzine p.o. He remains a little tachycardic with a heart rate of 109. Current blood pressure 106/86. Room air sats 97%. Patient has no significant findings concerning for acute exacerbation of his congestive failure. I feel like this is more anxiety driven as the patient is having a hard time affording his cardiac medications, lives with his father who smokes in the home. Patient has no indications for advanced imaging, CT, CTA PE protocol. Low clinical concern for pulmonary embolus. Recommend the patient follow-up with cardiology, he needs to call to schedule an appointment, specifically to be fitted for his LifeVest. He needs to work on compliance with his medications and risk factor modification including continued abstinence from methamphetamine. He also needs to follow-up with [facility] over possible anxiety issues related to his health. Reassurance provided to the patient. ECG Initial ECG Impression Date: Dec 31, 2022 Initial ECG Impression Time: 06:25 Initial ECG Rate: 108 Initial ECG Rhythm: S.Tach Initial ECG Intervals IA 168 QRS 109 QTc 426 Initial ECG Comparisson: Unchanged Comment LAE, no ectopy; no ST elevation or depression Diagnostic Imaging Diagonstic Imaging: Xray Plain Films/CT/US/NM/MRI: chest Comments [facility]. [place], [place] NAME: JITENDRA LEMUS [facility] REC#: [id number] PT STATUS: REG ER : 1980 PHYSICIAN: LOYD REINA MD ADMIT DATE: 12/31/22/ER Draft Date of Exam:12/31/22 CHEST 1 VIEW, AP/PA ONLY INDICATION: Chest pain. COMPARISON: 12/17/2022. DISCUSSION: Single portable upright view of the chest was obtained. Heart is upper limits of normal in size. Some new perihilar infiltrates are present, likely edema or pneumonia. Atypical pneumonia is not excluded. No focal consolidation. No pleural fluid or pneumothorax. No osseous abnormality. IMPRESSION: 1. New perihilar infiltrates. Dictated on workstation # [id number] Dict: 12/31/22 0655 Trans: 12/31/22 0657 [facility] [id number] Interpreted by: BARRETT DOUGLAS MD Electronically signed by: Departure Impression Primary Impression: Dyspnea Qualified Codes: R06.00 - Dyspnea, unspecified Additional Impression: History of cardiomyopathy Disposition: HOME, SELF-CARE Condition: Stable Departure-Patient Inst. Decision time for Depature: 07:48 Referrals: BETH GIL DO (PCP/Family) Primary Care Physician Patient Instructions: Shortness of Breath, Adult ED Add. Discharge Instructions: Continue blood pressure medications as prescribed. Please contact either Dr Escobar's office or Dr Austin's office for a follow up appointment to get your LifeVest fitted. Continue to try and keep away from meth. Consider sleeping up on 2-3 pillows for the shortness of breath, your chronic congestive heart failure (holding on to a little extra fluid in your lungs) will make it chronically harder to sleep laying flat. Consider follow up with [facility] for evaluation and possible medication/therapy for anxiety. [facility] [phone] [address] [place] [address] Return to the Emergency Department for any new, concerning or emergent complaints. Copy Copies To 1: BETH GIL DO Copies To 2: MICHELLE ESCOBAR MD FACP [facility]; ADILENE AUSTIN MD, KATHRYN M MD Dec 31, 2022 06:12
[2022-12-31] MEDS ORDERED: hydrOXYzine 25 MG CAPSULE PO ONE (06:30)
[2022-12-31 06:43] LABS: BASOPHILS # (AUTO) 0.1 10^3/uL (0.0-0.1); BASOPHILS % (AUTO) 1 % (0-10); EOSINOPHILS # (AUTO) 0.5 10^3/uL (0.0-0.3); EOSINOPHILS % (AUTO) 3 % (0-10); HEMATOCRIT 48 % (40-54); HEMOGLOBIN 15.5 g/dL (13.3-17.7); LYMPHOCYTES # (AUTO) 2.4 10^3/uL (1.0-4.0); LYMPHOCYTES % (AUTO) 17 % (12-44); MEAN CORPUSCULAR HEMOGLOBIN 28 pg (25-34); MEAN CORPUSCULAR HGB CONC 33 g/dL (32-36); MEAN CORPUSCULAR VOLUME 87 fL (80-99); MEAN PLATELET VOLUME 9.8 fL (9.0-12.2); MONOCYTES # (AUTO) 1.1 10^3/uL (0.0-1.0); MONOCYTES % (AUTO) 7 % (0-12); NEUTROPHILS # (AUTO) 10.3 10^3/uL (1.8-7.8); NEUTROPHILS % (AUTO) 72 % (42-75); PLATELET COUNT 348 10^3/uL (130-400); WHITE BLOOD COUNT 14.3 10^3/uL (4.3-11.0)
--- NOTE | 2022-12-31 06:58 | Diagnostic Imaging Report ---
INDICATION: Chest pain. COMPARISON: 12/17/2022. DISCUSSION: Single portable upright view of the chest was obtained. Heart is upper limits of normal in size. Some new perihilar infiltrates are present, likely edema or pneumonia. Atypical pneumonia is not excluded. No focal consolidation. No pleural fluid or pneumothorax. No osseous abnormality. IMPRESSION: 1. New perihilar infiltrates. Dictated by: Dictated on workstation # [id number]
[2022-12-31 07:00] LABS: CHLORIDE 109 MMOL/L (98-107); SODIUM 142 MMOL/L (135-145)
[2022-12-31 07:01] LABS: CALCIUM 9.3 MG/DL (8.5-10.1)
[2022-12-31 07:02] LABS: GLUCOSE 98 MG/DL (70-105); TOTAL PROTEIN 7.5 GM/DL (6.4-8.2)
[2022-12-31 07:04] LABS: BILIRUBIN,TOTAL 0.5 MG/DL (0.1-1.0); CARBON DIOXIDE 22 MMOL/L (21-32)
[2022-12-31 07:06] LABS: ALKALINE PHOSPHATASE 63 U/L (40-136); CREATININE SERUM 0.87 MG/DL (0.60-1.30); GFR ESTIMATED 110
[2022-12-31 07:07] LABS: BUN/CREATININE RATIO 17
[2022-12-31 07:09] LABS: ALANINE AMINOTRANSFERASE 21 U/L (0-55)
[2022-12-31 07:13] LABS: INR 1.1 (0.8-1.4); PROTHROMBIN TIME PATIENT 14.1 SEC (12.2-14.7)
[2022-12-31 07:22] LABS: BASOPHILS % (MANUAL) 1 %; EOSINOPHILS % (MANUAL) 4 %; LYMPHOCYTES % (MANUAL) 12 %; MONOCYTES % (MANUAL) 4 %; NEUTROPHILS % (MANUAL) 75 %; RBC MORPH NORMAL; REACTIVE LYMPHOCYTES 4 %
[2022-12-31 08:41] VITALS: BP 105/81
== END 2022-12-31 08:41 | disposition home or self-care (01) ==
LOC: EDUNIT# 05:45 → ER 05:47
DX: R06.00 Dyspnea, unspecified (principal); I11.0 Hypertensive heart disease with heart failure; I50.9 Heart failure, unspecified; Z86.79 Personal history of other diseases of the circulatory system; Z79.82 Long term (current) use of aspirin
CPT/HCPCS: 36415; 71045; 80053; 83735; 83880; 84484; 85007; 85027; 85379; 85610; 85730; 93005

== ENCOUNTER → 2023-01-16 | Outpatient (CLI) | payer SELFPAY ==
[2023-01-16 11:10] LABS: BASOPHILS % (AUTO) 0 % (0-10); EOSINOPHILS # (AUTO) 0.4 10^3/uL (0.0-0.3); EOSINOPHILS % (AUTO) 4 % (0-10); HEMATOCRIT 49 % (40-54); HEMOGLOBIN 15.5 g/dL (13.3-17.7); LYMPHOCYTES # (AUTO) 1.7 10^3/uL (1.0-4.0); LYMPHOCYTES % (AUTO) 17 % (12-44); MEAN CORPUSCULAR HEMOGLOBIN 28 pg (25-34); MEAN CORPUSCULAR HGB CONC 32 g/dL (32-36); MEAN CORPUSCULAR VOLUME 88 fL (80-99); MEAN PLATELET VOLUME 9.6 fL (9.0-12.2); MONOCYTES # (AUTO) 0.6 10^3/uL (0.0-1.0); MONOCYTES % (AUTO) 6 % (0-12); NEUTROPHILS # (AUTO) 6.8 10^3/uL (1.8-7.8); NEUTROPHILS % (AUTO) 72 % (42-75); PLATELET COUNT 316 10^3/uL (130-400); WHITE BLOOD COUNT 9.5 10^3/uL (4.3-11.0)
[2023-01-16 11:26] LABS: CALCIUM 9.2 MG/DL (8.5-10.1); MAGNESIUM 2.2 MG/DL (1.6-2.4); POTASSIUM 3.9 MMOL/L (3.6-5.0)
== END ==
LOC: LAB 10:46
PROVIDERS: ATTEND Internal Medicine Cardiovascular Disease
DX: I11.0 Hypertensive heart disease with heart failure (principal); I50.22 Chronic systolic (congestive) heart failure; I42.0 Dilated cardiomyopathy; F15.21 Other stimulant dependence, in remission
CPT/HCPCS: 36415; 80048; 83735; 85025